=== PATIENT | female | born 1990 | race Caucasian/White ===

== ENCOUNTER 2024-12-21 09:17 | Outpatient (CLI) | payer OTHER, SELFPAY ==
--- OUTSIDE RECORDS SUMMARY | 2024-12-21 10:20 | XMS_ITS | Clinical Summary ---
Author Organization [facility] Address [address] [place] [id number] Care Team Providers Care [employer] Supervisor Name Role Phone SheetsYehudaInocenciabella Yepez NP Primary Care Provider Allergies Active Allergy Reactions Criticality Noted Date Comments Amoxicillin Penicillins Sulfa (Sulfonamide Antibiotics) Medications loratadine (CLARITIN) 10 mg tablet Take 1 tablet (10 mg total) by mouth daily Active Slynd tablet tablet Take 1 each (4 mg total) by mouth daily 08/09/2023 Active Active Problems Problem Noted Date Diagnosed Date General medical exam 08/12/2023 Assessment & Plan (08/12/2023 11:55 AM PARTNER [facility]): Follow-up 1 year for annual physical. Continue eating healthy. Limit processed foods like white starches, fast food, sweets and soda. Increase your vegetable intake and limit red meat. Continue exercising and wearing your seatbelt at all times. No texting and driving. Continue to manage your stress in a healthy manner. History of gestational diabetes 08/12/2023 Overview (08/12/2023): Diabetic diet, check labs Mild episode of recurrent major depressive disor comfort 09/28/2020 Atypical squamous cells of u ndetermined significance on cytologic smear of cervix (ASC-US) 06/02/2020 Overview (06/02/2020): 2017: ASCUS, - HR HPV 2018: neg/neg 2020: Generalized anxiety disorder 06/10/2018 Anxiety 03/07/2018 Other allergy status, other than to drugs and biological substances 03/19/2013 Dorsalgia 08/04/2012 Uncomplicated asthma 08/04/2012 Resolved Problems Problem Noted Date Diagnosed Date Resolved Date IUD (intrauterine device) in place 06/02/2020 01/10/2022 Overview (06/02/2020): Mirena placed 08/2017 White classification A1 gest ational diabetes mellitus 09/19/2015 08/12/2023 Immunizations Immunization Administration Dates Next Due Influenza, Quadrivalent, Spl it, Preservative Free, Intramuscular 08/01/2021,08/17/2020 Influenza, Unspecified 08/12/2023(Deferr ed: Patient decision),01/03/2023(Deferred: Patient Refused) MMR 11/16/2015 Varicella 09/28/2020(Deferred: History of disease) Medical History Medical History Date Comments Abnormal Pap smear of cervix Gestational diabetes Depression depression Gestational hypertension 2016 Gestational hypertension 2017 Asthma Family History Medical History Relation Name Comments No Known Problems Daughter Heart attack Father Diabetes Father's Brother Depression Maternal Grandmother Ovarian cancer Mother dx in 20s whi le , still living Depression Mother's Brother No Known Problems Son Relation Name Status Comments Daughter Alive Father Alive Father's Brother Maternal Grandmother Mother Alive Mother's Brother Son Alive Social History Tobacco Use Types Packs/Day Years Used Date Smoking Tobacco: Former Cigarettes Q uit: 12/06/2019 Smokeless Tobacco: Never Tobacco Cessation:Counseling Given: Not Answered Alcohol Use Standard Drinks/Week Comments Yes 5 (1 standard drink = 0.6 oz pur e alcohol) AUDIT-C Answer Date Recorded Q1: How often do you have a drink containing alc ohol? Never 06/02/2020 Average Number of Drinks Not on file 020 Frequency of Binge Drinking Not on file 05/08 PHQ-2 Answer Date Recorded PHQ-2 Total Score (If total score is 3 or more points, staff should administer the PHQ-9) 0 08/12/2023 Personal Safety Answer Date Recorded Getting School Help Needed Not on file 09/24 Comments No Sex and Gender Information Value Date Recorded Sex Assigned at Not on file Legal Sex Female 7:44 PM [facility]NER [facility] Gender Identity Female 09/06/2020 10:20 AM [facility] Sexual Orientation Straight 09/06/2020 10 :20 AM [facility] Obstetrics History Para Term AB IAB SAB Ectopic Multiple Livin g Live Births 2 2 2 2 2 Date Outcome GA Total Labor Labor/2nd/3rd Weight Sex Type Anes PTL Christy A1 A5 Name Clin Term Term Last Filed Vital Signs Vital Sign Reading Time Taken Comments Blood Pressure 104/66 08/12/2023 10:52 AM [facility] Pulse 89 08/12/2023 10:52 AM [facility] Temperature 36.7 C (98 F) 08/12/2023 10:52 AM [facility] Respiratory Rate 16 08/12/2023 10:52 AM [facility] Oxygen Saturation 100% 08/12/2023 10:52 AM [facility] Inhaled Oxygen Concentration - - Weight 67.6 kg (149 lb) 08/12/2023 10:52 AM [facility] Height 160 cm (5' 2.99 ) 08/12/2023 10:52 AM PARTNER [facility] Body Mass Index 26.4 08/12/2023 10:52 AM PARTNER [facility] Plan of Treatment Health Maintenance Due Date Last Done Comments DTaP/Tdap/Td Vaccine (1 - Tdap) 2001 Hepatitis B Screening 2008 Pneumococcal vaccine <65 (1 of 2 - PCV) 2009 Covid-19 Vaccine ( season) 2024 08/15/2021, 01/12/2021, 12/22/2020 Influenza Vaccine (#1) 2024 08/01/2021, 2019 Depression Screening 08/12/2024 08/12/2023, 12/12/2021, 08/01/2021, Additional history exists Regular Well Visit/Exam 18-64 08/12/2024 08/12/2023, 10/10/2021, 06/02/2020 Cervical Cancer Screening 10/10/20242021, 06/15/2020, 06/02/2020 Hepatitis C Screening Completed 12/21/2016 HPV Vaccines Aged Out No longer eligi ble based on patient's age to complete this topic Varicella Vaccines Discontinued Procedures Procedure Name Priority Date/Time Associated Diagnosis Comments THINPREP PAP WITH HPV Routine 10/10/2021 10:59 AM [facility] HEPATITIS C ANTIBODY Routine 12/21/2016 2:47 PM CDT from Last 3 Months or Most Recently Relevant to Health Maintenance Results * ThinPrep Pap with HPV (10/10/2021 10:59 AM [facility]) Pap test 10/10/2021 10:5 9 AM [facility] 10/11/2021 10:59 AM [facility] Narrative 10/16/2021 6:02 PM [facility] Department of Pathology [address] [place] [id number] Final Report with Addendum Note to Patients: This report may contain a detailed description of human tissue sent by a health care provider to the laboratory for pathologic evaluation. The content of this report is essential for diagnosis and may provide important critical findings. This information may be unfamiliar to patients to review without a medical professional present. It is advised that the patient review this report in the presence of a health care provider who can answer questions and explain the details. Patient Name: LILIANE NAVARRO Address: [address] [place] [address] Gender: F : 1990 (Age: 31) Service: Laboratory Location: N : [id number] [facility] #: [id number] Patient Type: [facility] SPECIMEN Taken: 10/10/2021 Received: 10/11/2021 Accessioned:: 10/12/2021 Reported: 10/16/2021 Physician(s): Rosi Baird M.D. [facility] Diagnosis: Source of Specimen: Imaged Thinprep Pap Test plus HPV - [employer] Developer Cytologic Material Specimen Adequacy: - Satisfactory for evaluation; endocervical/transformation zone component present General Category: - Negative for intraepithelial lesion or malignancy Interpretation/Results: - Inflammation and associated reactive cellular changes - Fungal organisms present, morphologically consistent with karina species FERDINAND Smallwood(ASCP) Pam Alvarado M.D. Report Electronically Reviewed and Signed Out By Pam Alvarado M.D. 10/16/2021 18:02:03 Addenda: HPV Test Interpretation NEGATIVE for types 16, 18, 31, 33, 35, 39, 45, 51, 52, 56, 58, 59, 66 and 68. Test performed utilizing Gen-Probe Aptima assay. FERDINAND Gibson(ASCP) Report Electronically Reviewed and Signed Out By FERDINAND Gibson(ASCP) 10/12/2021 13:00:44 Specimen(s) Received: A: Imaged Thinprep Pap Test plus HPV - [employer] Developer Cytologic Material Clinical History: Last Menstrual Period: 09/29/21 The Pap test is a screening test used to aid in the detection of cervical cancer and its precursors. It should not be the sole means by which malignant and premalignant lesions are diagnosed. Both false negative and false positive results may occur. It also has poor sensitivity for the detection of endometrial lesions and should not be used to evaluate suspected endometrial abnormalities. For these reasons it is most important to obtain Pap tests at regular intervals. The performance characteristics of some immunohistochemical stains, fluorescence in-situ hybridization tests and immunophenotyping by flow cytometry cited in this report (if any) were determined by the Surgical Pathology Department at [facility] as part of an ongoing automotive quality engineer program and in compliance with federally mandated regulations drawn from the Clinical Laboratory Improvement Act of 1988 (CLIA '88). Some of these tests rely on the use of analyte specific reagents and are subject to specific labeling requirements by the US Food and Drug Administration. Such diagnostic tests may only be performed in a facility that is certified by the Department of Health and Human Services as a high complexity laboratory under CLIA '88. The FDA has determined that such clearance or approval is not necessary. This test is used for clinical purposes. It should not be regarded as investigational or for research. Nevertheless, federal rules concerning the medical use of analyte specific reagents require that the following disclaimer be attached to the report: This test was developed and its performance characteristics determined by the Surgical Pathology Department [facility]. It has not been cleared or approved by the U. S. Food and Drug Administration. Rosi Baird MD LAB CYTOLOGY ORDERABLES Final Re sult * Hepatitis C antibody (12/21/2016 2:47 PM CDT) Hep C Ab NONREACT NONREACTIVE Comment: Siemens VisiQuateaurXP using MAURICE (chemiluminescent immunoassay) technology. NONREACTIVE: Antibodies to Hepatitis C not detected. This does not exclude early acute Hepatitis C infection, possibility of exposure to Hepatitis C, antibodies below detection limit, or to lack of antibody reactivity to the antigen used in this assay. EQUIVOCAL: Antibodies to Hepatitis C may or may not be present. Sample to be confirmed by real-time PCR method. REACTIVE: Antibodies to Hepatitis C detected. 12/21/2016 2:47 PM CDT 12/21/2016 4:38 PM CDT Marah Cali MD LAB MICROBIOLOGY - GENERAL O RDERABLES Final Result [facility] HISTORICAL RESULTS from Last 3 Months or Most Recently Relevant to Health Maintenance Insurance Care Teams [employer] Supervisor Relationship Specialty Start Date End Date Inocencia Sheets NP [address] [facility] [address] [place] [address] PCP - General Internal Medicine 08/17/20
--- OUTSIDE RECORDS SUMMARY | 2024-12-21 10:20 | XMS_ITS | Data Portability ---
Author Organization [facility] Address [address] [place] [address] Care Team Providers Care Vice President Diversity Name Role Phone CRISTIAN BRENNAN Primary Care Provider Assessment Encounter Date Assessment Date Assessment LastModified by Organization Details LastModified Time 11/27/2023 11/27/2023 Annual gynecological exam performed. Patient will come back in a year unless there are new symptoms. Take Calcium with Vitamin D 1200mg daily if not receiving in daily diet. It is strongly advised to have an annual flu shot and up can obtain at most pharmacies. If you have not had a TDap shot in the last 10 years you should obtain one as well. Discussed with patient & provided with information regarding Gardisil vaccine to prevent the 4 strains for HPV that cause cervical cancer if under age 26. Encourage safe sexual practices, to use condoms and limit partners if not already in a monogamous relationship. Do monthly self breast exams. Have mammogram yearly or every other year depending on family history. BRCA testing is now available for patients with strong genetic history of female cancer. If interested contact the office. Engage in daily exercise of low impact aerobic exercise 45-60 minutes 4-5 times weekly. Avoid tobacco and illicit drugs as well as using moderation with alcohol intake less than 1-2 8 oz beverages daily. This lifestyle behavior pattern will lead to less health conditions and longer life span. If BMI greater than 25 weight watchers or dietary consult advised. Patient received above instructions, and questions have been answered. If you have any questions please call or respond to this email. Patient was made aware of the patient portal and may obtain a paper copy of today's plan if desired. [email or web address] Not available 11/27/2023 11:34:10 Plan of Treatment Reminders Order Date Submit Date Provider Last Modified By Organization Details Last Modified Time Details Appointments Robotic TLH 2024 12:00P Candy SINCLAIR MD Not available Not available Not available SURG POST OP 2024 08:45A Candy SINCLAIR MD Not available Not available Not available Lab CBC 2024 025 [facility] (Lab), [address] [facility], [place], [address], 12/16/2024 04:07:56 Referral [email or web address] logist referral 2023 024 MARCO ANTONIO Bill MD, [address] [facility] [address], [place], [address], 10/04/2024 05:01:13 Procedures None recorded. Surgeries robotic assisted hysterect jessica with salpingec jason (SURG) 2024 025 [email or web address] [facility], [address] [facility] [address], [place], [address], 12/10/2024 13:43:36 Imaging US, pelvis [address], [facility] [address], [place], [address], 02/04/2024 22:31:29 US, transvagi nal [email or web address], [address], [address], [place], [address], 02/04/2024 22:31:29 Medication Orders Chelsey 0.35 mg tablet 2023 024 [email or web address] [facility], [address] [place] [address] [address], [place], [address], 03/30/2024 09:36:26 Patient TargetsNo targets recorded. Patient InstructionsNo instructions recorded. Reason for Referral Urogynecologist Referral for Female stress incontinence stress incontinence, planning hysterectomy in the fall Referring Physician: Farhad Sagastume, STATISTICAL MACHINE SERVICER, Encounter Date: 03/30/2024 Results Created Date Observation Date Name Description Value Unit Range Abnormal Flag Note LastModifiedBy Organization Detail LastModifiedTime 11/27/19 24 11/27/2023 IMAGE GUIDE D PAP AND HPV REGAR DLESS image guided Pap, HPV regardless of Pap result SEE RESULT S BELOW CASE REPOR T: Cytol ogy Gynec ologi jabier Repor t Case: [id number] [address] [place] Provi comfort: Kendal Malone NP Colle cted: 11/27 1308 Order ing Locat ion: [place] Path[facility] Recei andre: 11/28 0113 First Harsh n: Cyndi George Speci men: Harsh escalante Pap - Image d, Cervi x STATE MENT OF ADEQU ACY: Satis facto ry for evalu ation Trans forma tion zone compo nent prese nt FINAL DIAGN OSIS: Negat alejandro for Intra epith elial Mauro alcantar or Nata higginbotham (NIL) . Elect fuentes adams heron d by Cyndi George ica on 2023 at 2:12 PM ----- ----- ----- ----- ----- ----- ----- ----- ----- ----- ----- ----- ----- ----- ----- ----- ----- ---- HPV RESUL TS: HPV mRNA E6/E7 : No HPV mRNA Detec diana NOTE: This high risk HPV mRNA assay detec ts fourt een high- risk HPV types (16, 18, 31, 33, 35, 39, 45, 51, 52, 56, 58, 59, 66, 68) witho ut diffe renti ation . COMME NT: This speci men was revie wed by a Cytot echno logis t and/o r Patho logis t (as indic ated in this repor t) after evalu ation using the Thinp rep Imagi ng Syste m. CLINI JABIER INFOR MATIO N: Menst rual Statu s: LMP (if appli cable ): Clini jabier Histo ry/Pr eviou s Pap: Type of Neopl shirin (if appli cable ): Signi fican t Clini jabier Findi ngs: Other Histo ry: Hormo demetrice (if appli cable ): PAP EDUCA FLOYD L NOTE: The Pap Test is a scree boris test with an inher ent false negat alejandro rate. Liqui d-bas ed sampl ing may decre ase, but will not elimi danilo, false negat alejandro resul ts. A negat alejandro resul t does not precl ude the prese nce and/o r devel opmen t of disea se, since the prese nce of abnor mal cells in the sampl e depen ds on the locat ion of the lesio n and sampl ing techn ique. Maxim nued regul ar scree boris is the best metho d of cance r preve ntion . If repor diana cytol ogic findi ng do not corre late with physi jabier and/o r histo rical findi ngs, furth er inves tigat ion is recom richardson d, as clini josé warra nted. Not Available [facility] (Lab) [address] [facility], [place], [address], 12/02/2023 15:16:32 02/04/20 24 02/04/2024 US, abelvi s No observ ation record ed. [email or web address] [facility] [address], [place], [address], 02/04/2024 13:09:05 02/04/20 24 02/04/2024 US, moises becerril al No observ ation record ed. [email or web address] [place] [address], [place], [address], 02/04/2024 13:08:56 02/04/20 24 02/04/2024 US, pelvi s No observ ation record ed. [address] [facility], [place], [address], 02/06/2024 10:56:17 Result Notes None recorded. Procedures Surgical History Date Name Laterality Status Provider Name and Address Organization Details Recorded Time 4 Date of Last Pap Smear completed Becca Gardner [facility] 11/27/2023 11:05:16 3 IUD Removal completed Kendal Cabrera CNM [address], [place], [address], [facility] 12/14/2022 11:07:34 Imaging Results Imaging Date Name Status LastModified by Organization Details LastModified Time 02/04/2024 US, pelvis completed [email or web address] [place] [address], [place], [address], 02/04/2024 13:09:05 02/04/2024 [facility]aginal [email or web address] [address], [place], [address], 02/04/2024 13:08:56 02/04/2024 US, pelvis completed [email or web address] [address], [place], [address], 02/06/2024 10:56:17 Procedure Notes None recorded. Medical Equipment None Reported. Allergies Allergen ID Allergen Name Allergen Category Reaction Reaction Severity Criticality Documentation Date Start Date Code Code System Note Provider Name and Address Organization Details Recorded Time amoxicill in medicatio n rash severe Not available 09/07/2022 723 RxNorm Becca medel, [facility] 2 10:02:21 87227 penicilli n V potassium medicatio n rash severe Not available 09/07/202219395 5 RxNorm Becca medel, [facility] 2 10:02:21 37960 Substance with sulfonami de structure and antibacte rial mechanism of action (substanc e) medicatio n rash severe Not available 09/07/2022 54263 8003 SNOMED Becca Gardner [facility] 10:02:21 Medications Name Sig Start Date Stop Date Status Note LastModified by Organization Details LastModified Time oxybutynin chloride ER 10 mg tablet,exte nded release 24 hr TAKE ONE TABLET BY MOUTH DAILY 12/09 completed Not Available Not Available Not Available azithromyci n 250 mg tablet TAKE 2 TABLETS BY MOUTH ON DAY 1, THEN TAKE 1 TABLET DAILY ON DAYS 2-5 11/27 completed Not Available Not Available Not Available fluconazole 150 mg tablet TAKE ONE TABLET BY MOUTH EVERY OTHER DAY FOR THREE doses AND start taking A probiotic 11/27 completed Not Available Not Available Not Available sertraline 100 mg tablet TAKE ONE TABLET BY MOUTH DAILY 09/07 completed Not Available Not Available Not Available sumatriptan 50 mg tablet TAKE ONE TABLET BY MOUTH ONCE NEEDED FOR migraine. MAY REPEAT AFTER TWO hours 12/14 completed Not Available Not Available Not Available metronidazo le 500 mg tablet TAKE ONE TABLET BY MOUTH EVERY 12 hours FOR SEVEN DAYS 11/27 completed Not Available Not Available Not Available nystatin-tr iamcinolone 100,000 unit/gram-0 .1 % topical ointment APPLY TO THE AFFECTED AREA(S) BY TOPICAL ROUTE 2 TIMES PER DAY 11/27 completed Not Available Not Available Not Available clindamycin 1 % topical gel apply A thin layer topically TO THE affected area(s) TWICE DAILY 12/09 completed Not Available Not Available Not Available nystatin-tr iamcinolone 100,000 unit/g-0.1 % topical cream APPLY TO THE AFFECTED AREA(S) with A thin layer TWICE DAILY 11/27 completed Not Available Not Available Not Available norethindro ne acetate 5 mg tablet Take 1 tablet every day by oral route. 12/09 completed Not Available Not Available Not Available methylpredn isolone 4 mg tablets in a dose pack TAKE ONE TABLET BY MOUTH TWICE DAILY UNTIL ALL TAKEN 11/27 completed Not Available Not Available Not Available intrauterin e device (IUD) 03/10 /2023 completed Not Available Not Available Not Available spironolact one 50 mg tablet TAKE ONE TABLET BY MOUTH EVERY DAY 11/27 completed Not Available Not Available Not Available ibuprofen active Not Available Not Arabella ilable Not Available Probiotic active Not Available Not Arabella ilable Not Available Mariaelena 0.35 mg tablet take one tablet BY MOUTH daily 03/30 completed Not Available Not Available Not Available Onexton 1.2 % (1 % base)-3.75 % topical gel with pump APPLY A PEA-SIZED AMOUNT BY TOPICAL ROUTE ONCE DAILY TO COVER AREAS OF FACE WITH THIN LAYER 12/09 completed Not Available Not Available Not Available Slynd 4 mg (28) tablet Take 1 tablet every day by oral route. 03/30 completed Not Available Not Available Not Available Natalia Fe 10/26 (28) 1 mg-20 mcg (21)/75 mg (7) tablet TAKE ONE TABLET BY MOUTH DAILY 09/07 completed Not Available Not Available Not Available Vitals Date Recorded Body height Body mass index (BMI) Body weight Systolic blood pressure Diastolic blood pressure Provider Name and Address Organization Details Last Updated DateTime 11/27/2023 162.56 cm 25.4 kg/m2 10590.67 g 133 mm[Hg] 84 mm[Hg] Becca Gardner [facility] 4 11:04:50 Date Recorded Body height Body mass index (BMI) Body weight Systolic blood pressure Diastolic blood pressure Provider Name and Address Organization Details Last Updated DateTime 01/10/2024 162.56 cm 25 kg/m2 07595.05 g 122 mm[Hg] 77 mm[Hg] Teresa Bryant [facility] 4 12:35:05 Date Recorded Body height Body mass index (BMI) Body weight Systolic blood pressure Diastolic blood pressure Provider Name and Address Organization Details Last Updated DateTime 03/30/2024 162.56 cm 25.5 kg/m2 42840.11 g 111 mm[Hg] 76 mm[Hg] Guerline Lockwood [facility] 4 09:36:12 Date Recorded Body height Body mass index (BMI) Body weight Systolic blood pressure Diastolic blood pressure Provider Name and Address Organization Details Last Updated DateTime 12/09/2024 162.56 cm 26.2 kg/m2 00624.2 g 125 mm[Hg] 80 mm[Hg] Abimbola Andrea [facility] 17:38:47 Social History Question Answer Notes LastModified by Organizat ion Details LastModified Time Tobacco Smoking Status Former Smoker Becca medel, [facility] 09/07/2022 10:06:05 Do You Have An Advance Directive? No [email or web address] Information not available 09/07/2022 What Is Your Level Of Alcohol Consumption? Occasional [email or web address] Information not available 09/07/2022 How Many Years Have You Consumed Alcohol? 11 [email or web address] Information not available 01/10/2024 Are You Blind Or Do You Have Difficulty Seeing? No Information not available 09/07/2022 What Is Your Level Of Caffeine Consumption? Moderate [email or web address] Information not available 09/07/2022 How Much Tobacco Do You Chew? None [email or web address] Information not available 12/09/2024 In The 14 Days Before Symptom Onset, Have You Had Close Contact With A Laboratory-confir med COVID-19 While That Case Was Ill? No [email or web address] Information not available 09/07/2022 In The 14 Days Before Symptom Onset, Have You Had Close Contact With A Person Who Is Under Investigation For COVID-19 While That Person Was Ill? No Information not available 09/07/2022 Have You Been To An Area Known To Be High Risk For COVID-19? No [email or web address] Information not available 09/07/2022 Are You Deaf Or Do You Have Serious Difficulty Hearing? No [email or web address] Information not available 09/07/2022 What Type Of Diet Are You Following? REGULAR [email or web address] Information not available 09/07/2022 What Is The Highest Grade Or Level Of School You Have Completed Or The Highest Degree You Have Received? 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 Yes [email or web address] Information not available 09/07/2022 Have You Ever Been Counseled For Unhealthy Alcohol Use? No [email or web address] Information not available 09/07/2022 Do You Use Protection During Sex? No [email or web address] Information not available 09/07/2022 Do You Use Your Seat Belt Or Car Seat Routinely? Yes [email or web address] Information not available 09/07/2022 Do You Have Smoke And Carbon Monoxide Detectors In Your Home? Yes [email or web address] Information not available 09/07/2022 How Much Tobacco Do You Smoke? No Information not available 12/09/2024 Do You Feel Stressed (tense, Restless, Nervous, Or Anxious, Or Unable To Sleep At Night)? [id number] [email or web address] Information not available 09/07/2022 Do You Use Any Illicit Or Recreational Drugs? No [email or web address] Information not available 09/07/2022 Do You Use Sunscreen Routinely? Yes [email or web address] Information not available 09/07/2022 Has Tobacco Cessation Counseling Been Provided? No [email or web address] Information not available 09/07/2022 Have You Used IV Drugs? No Information not available 09/07/2022 Do You Or Have You Ever Used Any Other Forms Of Tobacco Or Nicotine? No [email or web address] Information not available 09/07/2022 Sex: Unknown Functional Status Question Answer Note LastModified by Organizat ion Details LastModified Time Do you have difficulty walking or climbing stairs? No [email or web address] Information not available 09/07/2022 Are you able to walk? YESWOREST [email or web address] Information not available 09/07/2022 Are you able to care for yourself? Yes [email or web address] Information not available 09/07/2022 Do you have difficulty dressing or bathing? No [email or web address] Information not available 09/07/2022 What is your exercise level? Heavy [email or web address] Information not available 09/07/2022 Mental Status None recorded. Family History Relationship Description Onset Age of this Age Resolved Age Notes LastModified by Organization Details LastModified Time Father Heart disease [email or web address] Not available 09/07 10:02:21 Father Myocardial infarction [email or web address] Not available 11/2021 10:05:12 Father Open heart surgery [email or web address] Not available 02/2025 16:53:01 Maternal Grandfather Hypertensive disorder [email or web address] Not available 09/07 10:02:21 Mother Malignant tumor of ovary [email or web address] Not available 04/16 11:07:37 Mother Autoimmune disease [email or web address] Not available 2024 17:39:25 Medical History Condition Response Allergies (Food, seasonal, environmental ) Y Other N Breast Cancer N Drug/Latex Allergies/Reactions Y Blood Transfusion N Dermatologic Disorders N Lung Disease N Defects or Inherited Disease N Breast Problem N Gestational Diabetes Y Hematologic disorders N Anesthesia Complications N History of STI N Deep Vein Thrombosis N Polycystic ovary syndrome N Anxiety Disorder N Autoimmune disease N Arthritis N Infertility N Polyps N Acid Reflux (GERD) N History of abnormal pap N Cancer N Stroke N Varicosities N Neurologic/Epilepsy N Endometriosis N High Cholesterol N Headaches Y Fibromyalgia N Kidney Disease N Heart Problems N Kidney or Bladder Problems N Thyroid Problems N GI Problems N Eating Disorder N Anemia N Art (IVF or FET) N Psychiatric Illness N Ovarian Cancer N Diabetes Y Pulmonary (TB, Asthma) N Hepatitis/Liver Disease N No Past Medical History N Eczema N Urinary Tract Infection N Abuse/Domestic Violence N Asthma N Trauma/Violence N Depression/ depression N Heart Disease N Pre-Eclampsia Y Hypertension N Osteoporosis N Thrombophilias N Gynecological History Statement/Question Response Abnormal Pap N Date of Last Mammogram Flow Heavy Date of LMP 12/09/2024 On BCP's at Conception? N N Was last menstrual period normal N STIs/STDs N HPV Vaccine N Current Control Method Condoms Age at First Child 25 Sexually Active? Y Menses Monthly Y Date of DEXA bone scan Age of first menstrual cycle 13 Date of Last Pap Smear 11/27/2023 Sexual Problems? N Desired Control Method Hysterectom y LMP Approximate N Obstetrics History GPAL:G 2 P 2 0 0 2 Type Value Full Term 2 Living 2 Total 2 Past Encounters Encounter ID Performer Location Encounter Start Date Encounter Closed Date Diagnosis/Indication Diagnosis SNOMED-CT Code Diagnosis ICD10 Code Diagnosis Note [id number] Kendal Cabrera CNM [facility] [address] [address] 09/07/2022 09:33:56 09/07/2022 11:02:04 Irregular periods 59857305 N92.6 Acne 59788952 L70.9 [id number] Tiarra Blanco [place] [address],[place] [address] 10/11/2022 09:23:10 10/11/2022 10:47:09 Irregular periods 31800533 N92.6 [id number] [facility] [address],[place] [address] 12/14/2022 10:20:51 12/14/2022 11:18:48 Acne 54918762 L70.9 Vaginitis 32384025 N76.0 extended panel sent IUD check 505079546 Z30. 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, reviewed se risks and benefits will email in 3 months for f/u [id number] [facility] [address],[place] [address] 11/27/2023 10:41:27 11/27/2023 11:49:21 Gynecologic examination 74063693 Z01.419 Irregular periods 935657 07 N92.6 try couple monthsdisc ussed less coverage for bcm, use back updiscusse d vasectomy/ ablationvs hysterecto my se risks and benefits, discussed possible embwill f/u if pills do not work [id number] FARHAD SAGASTUME MD [place] [address],[place] [address] 01/10/2024 11:58:40 01/15/2024 03:47:22 Abnormal uterine bleeding 0992806573 9100 N93.9 - patient reports heavy periods since delivery of last child- reports previously controlled with OCPs, however unable to take estrogen now due to migraines- has tried POPs x2 and IUD x2 as well with worsening bleeding- discussed discontinu ation of all hormonal control methods to monitor response vs trial of lo lo estrin again (patient denies aura with migraines) vs surgical management with hysterecto my- recommend pelvic US to evaluate for structural issues causing AUB- will discuss further treatment options following US [id number] Frances Gagnon [place] [address],[facility] [address] 02/04/2024 10:12:32 02/04/2024 10:56:06 Menorrhagia 451180405 N92.0 N94.6 [id number] FARHAD SAGASTUME MD [place] [address] [address] 03/30/2024 09:26:20 03/31/2024 11:00:28 Menorrhagia 803890620 N92.0 Abnormal u terine bleeding 7557836677 9100 N93.9 - patient reports heavy periods since delivery of last child- reports previously controlled with OCPs, however unable to take estrogen now due to migraines- has tried POPs x2 and IUD x2 as well with worsening bleeding- no improvemen t off of hormonal methods- discussed expectant management vs trial of lo lo estrin again (patient declines estrogen containing methods due to intense migraines) vs depo or Nexplanon vs surgical management with endometria l ablation vs hysterecto my- Pelvic US wnl, no evidence of structural cause of AUB- patient desires definitive surgical management with hysterecto my Female str ess incontinence 06383723 N39.3 - patient reports worsening stress incontinen ce since vaginal deliveries - will send referral to urology for possible combo case [id number] [place] [address] [address] 12/09/2024 16:52:07 12/10/2024 05:43:24 Anemia 803180370 D64.9 Menorrhagia 237181702 N9 2.0 N94.6 this patient is a 34-year-ol d female with severe menorrhagi a. We have agreed to perform robotic assisted hysterecto my with bilateral salpingect jessica. We talked about oophorecto my. She has a family history of ovarian cancer. She would like to keep her ovaries. We discussed the risks, benefits, and alternativ es to ovarian preservati on or removal. She understand s risks, benefits, and alternativ es to the surgery. She is going to have a suburethra l sling placed by Dr. Bill under the same anesthesia . I spent over 20 minutes on the patient's care in total. Health Concerns Section Related Observation LastModified by Organization Detai ls LastModified Time None Recorded Concern Status LastModified by Organization Details LastModified Time None Recorded Advance Directives Directive N: Payers Encounter Date Sequence Insurance Name Policy Number Policy Manrique Covered Member ID Manrique Member ID Guarantor Name 11/27/2023 1 [employer] [id number] Liliane Kurt [place] [id number] Liliane [place] 01/10/2024 1 [employer] [id number] Liliane E Ludgate [id number] Liliane [place] 02/04/2024 1 [employer] [id number] Liliane E [place] [id number] 1 Liliane [place] 03/30/2024 1 [employer] [id number] Liliane E [place] [id number] 1 Liliane [place] 12/09/2024 1 [employer] [id number] Liliane E [place] [id number] 1 Liliane Ludgate Notes Date Note Type Note Provider Name and Address Organization Details Recorded Time 11/27/2023 text/html Annual GYNReport ed bypatient.History: irregular cycles on slynd, frustrated can't use estrogen do to hx migraine Menstrual cycle:Normal menses Urinary symptoms:No hematuria; No incontinence Vulva:No genital lesion Vagina:Normal vaginal discharge Breast:No breast pain; No breast lump; No nipple discharge Sexual complaints:No sexual complaints; No pain during intercourse; Normal libido Menopausal Symptoms:No menopausal symptoms; Normal vaginal lubrication Psychological symptoms:No depression; No anxiety; No PMDD Preventive measures:Encourage self breast examination; Encourage regular exercise; Encourage no tobacco useNotes:discuss options for bleeding Kendal Cabrera CNM [address], [place], [address], [facility] 11/27/2023 11:39:43 01/10/2024 text/html Presents to discuss heavy periods. Was previously on Slynd with heavy periods 2x per month, tried fro 1 year with worsening bleeding. Tried Mariaelena 0.35mg x1 month, now in 2nd month with heavy bleeding and cramping. Had blood running down leg on Saturday. Now not bleeding today. Was previously on lo loestrin 7 years ago. Had Mirena IUD after delivery of son, had heavy bleeding x3 years. Then tried alternate OCP, but had migraine that lasted two weeks and stopped after she stopped the OCP. Then had IUD in again with heavy bleeding and acne. IUD removed 1 year ago. She has completed childbearing. Family hx of ovarian cancer. FARHAD SAGASTUME MD [address], [place], [address], [facility] [facility] 01/15/2024 00:03:45 03/30/2024 text/html Patient presents for ultrasound follow up for menorrhagia. She has previously tried OCPS, however she developed severe migraines with estrogen containing methods. She also tried POPs x2 and IUD x2 with no improvement in her bleeding. Since January, she has been off of control. She reports two periods in February, and currently having heavy period since yesterday. Having some cramping, though able to do her normal activities. She is also concerned due to stress incontinence since her vaginal deliveries. She has tried at home exercises without improvement. FARHAD SAGASTUME MD [address], [place], [address], [facility] 03/30/2024 23:10:50 12/09/2024 text/html this patient is a 34 year old female with severe menorrhagia. She has longstanding very heavy bleeding. Her menses are regular. However, they require double protection. Patient has accidents, getting blood on her bedding and clothing. Is affected work. She changes a pad or tampon every hour. She leaks blood around the pad and tampon. This bleeding has a profound impact on her quality of life and her activities of daily living. We discussed treatment options. Patient has already made the decision to have hysterectomy. It has been authorized and scheduled. The patient understands the procedure. The procedure was described to the patient in great detail. the patient also understands the risks. The risks were also explained in detail. She understands that injuries May occur during surgery. She understands these injuries can result in hospitalization, more surgery, and severe illness. She understands there is risk of hemorrhage and infection. Redd Sinclair MD [address], [place], [address], [facility] 12/09/2024 22:07:12 OBGyn Episode Ob Episode Information Episode Created Date Number of Fetuses Patient Bloodtype Patient rh Status Prepregnancy Weight lbs Domestic Partner Domestic Partner Phone Father Name Medical Instructor Status 09/06/20 22 1 CLOSED Fetus Data First Name Last Name Admitted to NICU Weight (g) Sex Living Outcome Pediatric Complications Fetus ID Race Codes Race Delivery Type M Full Term [id number] Vaginal Delivery Logan Calculation Initial Logan Date Initial Exam Date Initial Exam Provider Initial Ultrasound Date Last Menstrual Period Date Ultra Sound Weeks Gestation 0 Eighteen To Twenty Week Logan Update Ultra Sound Date Fundal Height At Umbil Quickening Date Ultra Sound Latest Weeks Gestation Final Logan Confirmed By Final Logan Confirmed Date Final Logan Date Ultra Sound Latest Days Gestation 0 0 Menstrual History Last Menstrual Date Menses Monthly On Bcp Conception Prior Menses Frequency Hcg Plus Date Menarche Onset Age Delivery Information Delivery Date Delivery Type Labor Anesthesia Weeks Gestation Incision Type Labor Labor Length Hrs Delivered By Post Complications Tubal Sterilization Discharge Date Comments 7 38 GDM/ Preeclamp nargis Discharge Information Feeding Method Contraceptive Method Maternal HG B and HCT Levels Ob Episode Information Episode Created Date Number of Fetuses Patient Bloodtype Patient rh Status Prepregnancy Weight lbs Domestic Partner Domestic Partner Phone Father Name Medical Instructor Status 09/06/20 22 1 CLOSED Fetus Data First Name Last Name Admitted to NICU Weight (g) Sex Living Outcome Pediatric Complications Fetus ID Race Codes Race Delivery Type F Full Term [id number] Vaginal Delivery Logan Calculation Initial Logan Date Initial Exam Date Initial Exam Provider Initial Ultrasound Date Last Menstrual Period Date Ultra Sound Weeks Gestation 0 Eighteen To Twenty Week Logan Update Ultra Sound Date Fundal Height At Umbil Quickening Date Ultra Sound Latest Weeks Gestation Final Logan Confirmed By Final Logan Confirmed Date Final Logan Date Ultra Sound Latest Days Gestation 0 0 Menstrual History Last Menstrual Date Menses Monthly On Bcp Conception Prior Menses Frequency Hcg Plus Date Menarche Onset Age Delivery Information Delivery Date Delivery Type Labor Anesthesia Weeks Gestation Incision Type Labor Labor Length Hrs Delivered By Post Complications Tubal Sterilization Discharge Date Comments 6 36 GDM/ pre-eclam psia Discharge Information Feeding Method Contraceptive Method Maternal HG B and HCT Levels
--- OUTSIDE RECORDS SUMMARY | 2024-12-21 10:20 | XMS_ITS | Encounter Summary ---
Author Organization [facility] Facility Care Team Providers Care Home Teaching Grades 9 Thru 12 Teacher Name Role Phone No, Physician Primary Care Provider [phone] Inocencia Sheets SPECIALTY FOOD PRODUCTS SUPERVISOR Primary Care Provider Encounter Details Date Type Department Care Team (Latest Contact Info) Description 09/25/2017 Orders Only [facility] CLIN[facility] ProviderBrandon MD [address] [place] [address] Social History Tobacco Use Types Packs/Day Years Used Date Smoking Tobacco: Never Assessed Comments Unknown Sex and Gender Information Value Date Recorded Sex Assigned at Not on file Legal Sex Female 7:44 PM JEWEL FLAT SURFACER Gender Identity Female 09/06/2020 10:20 AM JEWEL FLAT SURFACER Sexual Orientation Straight 09/06/2020 10 :20 AM JEWEL FLAT SURFACER documented as of this encounter Plan of Treatment Not on file documented as of this encounter Procedures Procedure Name Priority Date/Time Associated Diagnosis Comments SCAN - PATHOLOGY 10/09/2017 12:0 0 AM JEWEL FLAT SURFACER documented in this encounter Results * SCAN - PATHOLOGY (10/09/2017 12:00 AM JEWEL FLAT SURFACER) Narrative 10/09/2017 12:00 AM JEWEL FLAT SURFACER Ordered by an unspecified provider. Historical Provider Final Res ult documented in this encounter Visit Diagnoses Not on filedocumented in this encounter Care Teams Home Teaching Grades 9 Thru 12 Teacher Relationship Specialty Start Date End Date No, Physician PCP - General 05/05/20 08/16/20 Inocencia Sheets, SPECIALTY FOOD PRODUCTS SUPERVISOR [address] [address] PCP - General Internal Medicine 08/17/20 documented as of this encounter
--- OUTSIDE RECORDS SUMMARY | 2024-12-21 10:20 | XMS_ITS | Encounter Summary ---
Author Organization [facility] Facility Care Team Providers Care Sharebroker Name Role Phone No, Physician Primary Care Provider [phone] Inocencia Sheets PUPPET MAKER Primary Care Provider Encounter Details Date Type Department Care Team (Latest Contact Info) Description 04/24/2017 Orders Only [facility] CLINCONV ProviderBrandon MD [address] [place] [address] Social History Tobacco Use Types Packs/Day Years Used Date Smoking Tobacco: Never Assessed Comments Unknown Sex and Gender Information Value Date Recorded Sex Assigned at Not on file Legal Sex Female 7:44 PM RAILROAD CAR TRUCK BUILDER Gender Identity Female 09/06/2020 10:20 AM RAILROAD CAR TRUCK BUILDER Sexual Orientation Straight 09/06/2020 10 :20 AM RAILROAD CAR TRUCK BUILDER documented as of this encounter Plan of Treatment Not on file documented as of this encounter Procedures Procedure Name Priority Date/Time Associated Diagnosis Comments SCAN - LABS 04/23/2017 12:00 AM CDT documented in this encounter Results * SCAN - LABS (04/23/2017 12:00 AM CDT) Narrative 04/23/2017 12:00 AM CDT Ordered by an unspecified provider. Historical Provider Final Res ult documented in this encounter Visit Diagnoses Not on filedocumented in this encounter Care Teams Sharebroker Relationship Specialty Start Date End Date No, Physician PCP - General 05/05/20 08/16/20 Inocencia Sheets, ABA [address] [facility] [address] [place] [address] PCP - General Internal Medicine 08/17/20 documented as of this encounter
--- OUTSIDE RECORDS SUMMARY | 2024-12-21 10:20 | XMS_ITS | Encounter Summary ---
Author Organization [facility] Facility Care Team Providers Care Fuel Efficient Aircraft Designer Name Role Phone No, Physician Primary Care Provider [phone] Inocencia Sheets BUCKSHOT SWAGE OPERATOR Primary Care Provider Encounter Details Date Type Department Care Team (Latest Contact Info) Description 06/11/2017 Orders Only [facility] CLINCONV ProviderBrandon MD [address] [place] [address] Social History Tobacco Use Types Packs/Day Years Used Date Smoking Tobacco: Never Assessed Comments Unknown Sex and Gender Information Value Date Recorded Sex Assigned at Not on file Legal Sex Female 7:44 PM NIGHT BAKER Gender Identity Female 09/06/2020 10:20 AM NIGHT BAKER Sexual Orientation Straight 09/06/2020 10 :20 AM NIGHT BAKER documented as of this encounter Plan of Treatment Not on file documented as of this encounter Procedures Procedure Name Priority Date/Time Associated Diagnosis Comments SCAN - LABS 06/11/2017 12:00 AM CDT documented in this encounter Results * SCAN - LABS (06/11/2017 12:00 AM CDT) Narrative 06/11/2017 12:00 AM CDT Ordered by an unspecified provider. Historical Provider Final Res ult documented in this encounter Visit Diagnoses Not on filedocumented in this encounter Care Teams Fuel Efficient Aircraft Designer Relationship Specialty Start Date End Date No, Physician PCP - General 05/05/20 08/16/20 Inocencia Sheets, ABA [address] [facility] [address] [place] [address] PCP - General Internal Medicine 08/17/20 documented as of this encounter
--- OUTSIDE RECORDS SUMMARY | 2024-12-21 10:20 | XMS_ITS | Encounter Summary ---
Author Organization [facility] Facility Care Team Providers Care Ham Stripper Name Role Phone No, Physician Primary Care Provider [phone] Inocencia Sheets RESIDENT CARE TECHNICIAN Primary Care Provider Encounter Details Date Type Department Care Team (Latest Contact Info) Description 02/04/2017 Orders Only [facility] CLINCONV ProviderBrandon MD [address] [place] [address] Social History Tobacco Use Types Packs/Day Years Used Date Smoking Tobacco: Never Assessed Comments Unknown Sex and Gender Information Value Date Recorded Sex Assigned at Not on file Legal Sex Female 7:44 PM RETAIL WAREHOUSE ASSOCIATE Gender Identity Female 09/06/2020 10:20 AM RETAIL WAREHOUSE ASSOCIATE Sexual Orientation Straight 09/06/2020 10 :20 AM RETAIL WAREHOUSE ASSOCIATE documented as of this encounter Plan of Treatment Not on file documented as of this encounter Procedures Procedure Name Priority Date/Time Associated Diagnosis Comments SCAN - LABS 02/04/2017 12:00 AM CDT SCAN - LABS 02/04/2017 12:00 AM CDT documented in this encounter Results * SCAN - LABS (02/04/2017 12:00 AM CDT) Narrative 02/04/2017 12:00 AM CDT Ordered by an unspecified provider. Historical Provider Final Res ult * SCAN - LABS (02/04/2017 12:00 AM CDT) Narrative 02/04/2017 12:00 AM CDT Ordered by an unspecified provider. us Historical Provider Final Res ult documented in this encounter Visit Diagnoses Not on filedocumented in this encounter Care Teams Ham Stripper Relationship Specialty Start Date End Date No, Physician PCP - General 05/05/20 08/16/20 Inocencia Sheets NP [address] [id number] PCP - General Internal Medicine 08/17/20 documented as of this encounter
--- OUTSIDE RECORDS SUMMARY | 2024-12-21 10:20 | XMS_ITS | Encounter Summary ---
Author Organization [facility] Facility Care Team Providers Care Spread Cutter Name Role Phone No, Physician Primary Care Provider [phone] Inocencia Sheets SYSTEM ADMINISTRATOR Primary Care Provider Encounter Details Date Type Department Care Team (Latest Contact Info) Description 11/14/2015 Orders Only [facility] CLINCONV ProviderBrandon MD [address] [place] [address] Social History Tobacco Use Types Packs/Day Years Used Date Smoking Tobacco: Never Assessed Comments Unknown Sex and Gender Information Value Date Recorded Sex Assigned at Not on file Legal Sex Female 7:44 PM RESEARCHER Gender Identity Female 09/06/2020 10:20 AM RESEARCHER Sexual Orientation Straight 09/06/2020 10 :20 AM RESEARCHER documented as of this encounter Plan of Treatment Not on file documented as of this encounter Procedures Procedure Name Priority Date/Time Associated Diagnosis Comments SCAN - PATHOLOGY 11/14/2015 12:0 0 AM RESEARCHER documented in this encounter Results * SCAN - PATHOLOGY (11/14/2015 12:00 AM RESEARCHER) Narrative 11/14/2015 12:00 AM RESEARCHER Ordered by an unspecified provider. Historical Provider Final Res ult documented in this encounter Visit Diagnoses Not on filedocumented in this encounter Care Teams Spread Cutter Relationship Specialty Start Date End Date No, Physician PCP - General 05/05/20 08/16/20 Inocencia Sheets, SYSTEM ADMINISTRATOR [address] [address] PCP - General Internal Medicine 08/17/20 documented as of this encounter
--- OUTSIDE RECORDS SUMMARY | 2024-12-21 10:20 | XMS_ITS | Encounter Summary ---
Author Organization [facility] Facility Care Team Providers Care Mobile Sales Expert Name Role Phone No, Physician Primary Care Provider [phone] Inocencia Sheets MEDICAL RECORD CODER Primary Care Provider Encounter Details Date Type Department Care Team (Latest Contact Info) Description 08/26/2017 Orders Only [facility] CLINCONV ProviderBrandon MD [address] [place] [address] Social History Tobacco Use Types Packs/Day Years Used Date Smoking Tobacco: Never Assessed Comments Unknown Sex and Gender Information Value Date Recorded Sex Assigned at Not on file Legal Sex Female 7:44 PM TEACHER AIDE CLERICAL Gender Identity Female 09/06/2020 10:20 AM TEACHER AIDE CLERICAL Sexual Orientation Straight 09/06/2020 10 :20 AM TEACHER AIDE CLERICAL documented as of this encounter Plan of Treatment Not on file documented as of this encounter Procedures Procedure Name Priority Date/Time Associated Diagnosis Comments SCAN - LABS 08/26/2017 12:00 AM TEACHER AIDE CLERICAL documented in this encounter Results * SCAN - LABS (08/26/2017 12:00 AM TEACHER AIDE CLERICAL) Narrative 08/26/2017 12:00 AM TEACHER AIDE CLERICAL Ordered by an unspecified provider. Historical Provider Final Res ult documented in this encounter Visit Diagnoses Not on filedocumented in this encounter Care Teams Mobile Sales Expert Relationship Specialty Start Date End Date No, Physician PCP - General 05/05/20 08/16/20 Inocencia Sheets NP [address] [address] PCP - General Internal Medicine 08/17/20 documented as of this encounter
--- OUTSIDE RECORDS SUMMARY | 2024-12-21 10:20 | XMS_ITS | Encounter Summary ---
Author Organization [facility] Facility Care Team Providers Care Mixing Engineer Name Role Phone No, Physician Primary Care Provider [phone] Inocencia Sheets AUTOMOTIVE PARTS COUNTER ASSOCIATE Primary Care Provider Encounter Details Date Type Department Care Team (Latest Contact Info) Description 07/09/2017 Orders Only [facility] CLINCONV ProviderBrandon MD [address] [place] [address] Social History Tobacco Use Types Packs/Day Years Used Date Smoking Tobacco: Never Assessed Comments Unknown Sex and Gender Information Value Date Recorded Sex Assigned at Not on file Legal Sex Female 7:44 PM GAME FARM HELPER Gender Identity Female 09/06/2020 10:20 AM GAME FARM HELPER Sexual Orientation Straight 09/06/2020 10 :20 AM GAME FARM HELPER documented as of this encounter Plan of Treatment Not on file documented as of this encounter Procedures Procedure Name Priority Date/Time Associated Diagnosis Comments SCAN - LABS 07/15/2017 12:00 AM CDT SCAN - LABS 07/09/2017 12:00 AM CDT documented in this encounter Results * SCAN - LABS (07/15/2017 12:00 AM CDT) Narrative 07/15/2017 12:00 AM CDT Ordered by an unspecified provider. Historical Provider Final Res ult * SCAN - LABS (07/09/2017 12:00 AM CDT) Narrative 07/09/2017 12:00 AM CDT Ordered by an unspecified provider. us Historical Provider Final Res ult documented in this encounter Visit Diagnoses Not on filedocumented in this encounter Care Teams Mixing Engineer Relationship Specialty Start Date End Date No, Physician PCP - General 05/05/20 08/16/20 Inocencia Sheets NP [address] [id number] PCP - General Internal Medicine 08/17/20 documented as of this encounter
--- OUTSIDE RECORDS SUMMARY | 2024-12-21 10:20 | XMS_ITS | Referral Summary ---
Author Organization [facility] Address [address] [place] [id number] Care Team Providers Care Health Informatics Specialist Name Role Phone SudeepYehudaInocencaibella Yepez NP Primary Care Provider Allergies Active [...] 08/12/2023 Assessment & Plan (08/12/2023 11:55 AM WELL DRILL OPERATOR HELPER CABLE TOOL): Follow-up 1 year for annual physical. Continue [...] MMR 11/16/2015 Varicella 09/28/2020(Deferred: History of disease) Social History Tobacco Use Types Packs/Day Years [...] on file Legal Sex Female 7:44 PM WELL DRILL OPERATOR HELPER CABLE TOOL Gender Identity Female 09/06/2020 10:20 AM WELL DRILL OPERATOR HELPER CABLE TOOL Sexual Orientation Straight 09/06/2020 10 :20 AM WELL DRILL OPERATOR HELPER CABLE TOOL Last Filed Vital Signs Vital Sign Reading Time Taken Comments Blood Pressure 104/66 08/12/2023 10:52 AM WELL DRILL OPERATOR HELPER CABLE TOOL Pulse 89 08/12/2023 10:52 AM WELL DRILL OPERATOR HELPER CABLE TOOL Temperature 36.7 C (98 F) 08/12/2023 10:52 AM WELL DRILL OPERATOR HELPER CABLE TOOL Respiratory Rate 16 08/12/2023 10:52 AM WELL DRILL OPERATOR HELPER CABLE TOOL Oxygen Saturation 100% 08/12/2023 10:52 AM WELL DRILL OPERATOR HELPER CABLE TOOL Inhaled Oxygen Concentration - - Weight 67.6 kg (149 lb) 08/12/2023 10:52 AM WELL DRILL OPERATOR HELPER CABLE TOOL Height 160 cm (5' 2.99 ) 08/12/2023 10:52 AM WELL DRILL OPERATOR HELPER CABLE TOOL Body Mass Index 26.4 08/12/2023 10:52 AM WELL DRILL OPERATOR HELPER CABLE TOOL Plan of Treatment Not on file Procedures Procedure Name Priority Date/Time Associated Diagnosis Comments THINPREP PAP WITH HPV Routine 10/10/2021 10:59 AM WELL DRILL OPERATOR HELPER CABLE TOOL HEPATITIS C ANTIBODY Routine 12/21/2016 2:47 PM CDT from Last 3 Months or Most Recently Relevant to Health Maintenance Results * ThinPrep Pap with HPV (10/10/2021 10:59 AM WELL DRILL OPERATOR HELPER CABLE TOOL) Pap test 10/10/2021 10:5 9 AM WELL DRILL OPERATOR HELPER CABLE TOOL 10/11/2021 10:59 AM WELL DRILL OPERATOR HELPER CABLE TOOL Narrative 10/16/2021 6:02 PM WELL DRILL OPERATOR HELPER CABLE TOOL [facility] Department of Pathology [address] [place] [address] Final Report with Addendum Note to Patients: [...] questions and explain the details. Patient Name: VIVIANE NAVARRO Address: [address] [place] [address] Gender: F : 1990 (Age: 31) Service: Laboratory Location: N : [id number] [facility] #: [id number] Patient Type: [facility] SPECIMEN Taken: 10/10/2021 Received: 10/11/2021 Accessioned:: 10/12/2021 Reported: 10/16/2021 Physician(s): Rosi Baird M.D. [facility] Diagnosis: Source of Specimen: Imaged Thinprep Pap Test plus HPV - Office Clinician Cytologic Material Specimen Adequacy: - Satisfactory for [...] Test performed utilizing Gen-Probe Aptima assay. FERDINAND Gibson(ASC) Report Electronically Reviewed and Signed Out By FERDINAND Gibson(ASC) 10/12/2021 13:00:44 Specimen(s) Received: A: Imaged Thinprep Pap Test plus HPV - Office Clinician Cytologic Material Clinical History: Last Menstrual Period: [...] determined by the Surgical Pathology Department at [facility] as part of an ongoing senior software quality engineer program and in compliance with [...] characteristics determined by the Surgical Pathology Department [facility]. It has not been cleared or approved by the U. S. Food and Drug Administration. us Rosi Baird MD LAB CYTOLOGY ORDERABLES Final Re sult * Hepatitis C antibody (12/21/2016 2:47 PM CDT) Hep C Ab NONREACT NONREACTIVE 12/21/2016 6:16 PM CDT [facility] HISTORICAL RESULTS Comment: Siemens [employer]elsaurXP using MAURICE (chemiluminescent immunoassay) technology. NONREACTIVE: Antibodies [...] 2:47 PM CDT 12/21/2016 4:38 PM CDT us Marah Cali MD LAB MICROBIOLOGY - GENERAL O RDERABLES Final Result [facility] HISTORICAL RESULTS from Last 3 Months or Most Recently Relevant to Health Maintenance Insurance VIVIENNE Care Teams Health Informatics Specialist Relationship Specialty Start Date End Date Inocencia Sheets NP [facility] [place] [address] PCP - General Internal Medicine 08/17/20
== END 2024-12-21 09:18 | disposition home or self-care (01) ==
LOC: ANHSURGERY 09:24
PROVIDERS: Visit Provider Obstetrics & Gynecology
DX: Z01.818 Encounter for other preprocedural examination (principal); N92.0 Excessive and frequent menstruation with regular cycle
CPT/HCPCS: 36415; 86850; 86900; 86901

== ENCOUNTER 2024-12-28 01:01 | Day surgery (SDC) | payer OTHER, SELFPAY ==
[2024-12-17 09:25] VITALS: BMI 26.6
--- NOTE | 2024-12-17 09:33 | PC.NURSE ---
Report to the Outpatient Waiting Room, entrance under the green pavilion located off [facility], at time _1000_ on date _[id number]_. Planned Procedure Time: _1200_.? Time changes happen often and if your time is changed the preop area will call you the afternoon before. - You and your visitor will be asked to self-screen and do not enter if you have any COVID symptoms. Please call surgeon if you need to reschedule. - A mask is optional within the hospital at this time. Patients may have clear liquids (water, carbonated beverages, clear teas, apple juice) until 3 hours prior to surgery with a maximum of 20 ounces. - No food from midnight until time of surgery and no smoking, or chewing tobacco (or any form of nicotine). No chewing gum, candy or mints. Take only the following medications with a SIP of water on the morning of surgery: ___None DO NOT STOP ANY OF YOUR OTHER PRESCRIPTION MEDICATIONS PRIOR TO SURGERY EXCEPT THE FOLLOWING Hold all vitamins and supplements for 3 days per anesthesiologist. Medications to discontinue per physician Date to take last zzyi___[phone]____ Please no make-up, nail cape verdean, hairspray, perfume, deodorant, or body powder the day of surgery.? No jewelry (including any body piercings) or valuables the day of surgery, leave them at home.? Please take a shower or bath the night before, or the morning of, surgery with an antibacterial soap.? Wear comfortable, loose fitting clothing.? - Jewelry must be removed prior to entering the operating room.? Rings and piercings that are not removed may be cut off. - The hospital will not accept responsibility for valuables.? - Please leave all valuables, including medications, at home the day of surgery. If you are going home after surgery, a licensed trencher driver must drive you home.? - NO public transportation without another adult if you receive anesthesia. - We recommend that an adult stay with you for 24 hours following discharge. - We also recommend that you do not drive, make important decision, drink alcoholic beverages, or take any drugs that were not prescribed by your health care provider for at least 24 hours after your discharge time. Follow any additional instructions given to you from your surgeon. Telephone instructions given to __Liliane__and asked if any additional questions and then verbalized understanding. Patient advised to call surgeon office or pre surgery nurse liaison [phone] if any additional questions.
--- NOTE | 2024-12-26 15:03 | PM.IMHP ---
H&P: HPI History of Present Illness Date/Time: 12/26/24 15:03 Chief Complaint: miguel a Narrative: Note:?Liliane Navarro is a 34-year-old female who presents for a clinic visit due to urinary incontinence. She is seen at the request of her industrial gas production operator. ?She reports that she has had two children, and since then, she has experienced significant bladder issues. She is unable to get through an hour and a half car ride without needing to urinate and has to wear protection when she laughs, screams, yells, coughs, sneezes, jumps, or lifts. This problem has been ongoing for approximately seven years, coinciding with the age of her youngest child. She describes the urgency as severe, often feeling an immediate need to urinate, and when she does, it is a full void rather than a small amount. She also experiences stress incontinence with activities such as coughing, sneezing, and laughing. She has discussed her symptoms with her industrial gas production operator, Dr. Sagastume, who suggested that they could coordinate treatment with a hysterectomy she is considering for painful periods. Liliane is interested in exploring surgical options for her incontinence, specifically a mid-urethral sling procedure. A bladder scan was completed to evaluate for urinary retention as possible cause for voiding symptoms. Review of Systems Review of Systems: All systems reviewed & are unremarkable except as noted in HPI and below PMFSH Social History Social History Years smoked: 2 Smoking status: Former smoker Tobacco type: cigarettes Smoking end date: 12/18/19 Alcohol intake: current Living arrangements: with family Spiritual care concerns: No Meds Home Medications and Allergies Home Medications ?Medication ?Instructions ?Recorded ?Confirmed ?Type ibuprofen 200 mg tablet (Advil) 800 mg PO TID PRN pain 12/17/24 12/17/24 History lactobacillus combo no.11 15 1 cap PO DAILY 12/17/24 12/17/24 History billion cell sprinkle capsule (Probiotic) vitamin B complex 1 tablet PO DAILY 12/17/24 12/17/24 History vitamin D3 1,250 mcg (50,000 cap PO DAILY 12/17/24 History unit)-vitamin K2 200 mcg capsule (Decara K) Allergies Allergy/AdvReac Type Severity Reaction Status Date / Time amoxicillin Allergy Severe Hives Verified 12/17/24 09:22 Penicillins Allergy Severe Hives Verified 12/17/24 09:22 Sulfa (Sulfonamide Allergy Severe Hives Verified 12/17/24 09:22 Antibiotics) Exam Narrative: + urethral mobility Assessment and Plan Assessment and plan (1) MIGUEL A (stress urinary incontinence, female): Code(s): N39.3 - Stress incontinence (female) (male) Status: Acute Assessment and Plan: Stress incontinence, female (N39.3) Current Plans We discussed the treatment options for stress urinary incontinence including pelvic floor muscle rehabilitation, transurethral bulking agents, and mid-urethral sling procedures.? She is most interested in the latter.? We discusses the alternatives, benefits, and risks.? We discusses specifically the risks of bleeding, infection, failure to correct incontinence, damage to the urinary tract, vaginal mesh extrusion, urinary tract mesh erosion, obstructive voiding requiring a secondary procedure, de giovany or worsening irritative voiding symptoms, post-operative hip and leg pain, and the risk of anesthesia.? She was also counseled on post-operative activity restrictions.? She wishes to proceed. Understands treatment of her Stress Urinary Incontinence will not improve her overactive bladder symptoms. She may want to coordinate with her industrial gas production operator, Dr. Sagastume, if this is possible.?? they are planning a hysterectomy for dysfunctional uterine bleeding EXAMINATION OF PELVIS IN FEMALE (36032) Pt Education - Urethral Sling: discussed with patient and provided information. THE PATIENT WILL BE SCHEDULED FOR A URODYNAMIC STUDY FOR THE EVALUATION OF DETRUSOR/URETHRAL FUNCTION Perform Urodynamic study in the standing position if able Perform Urodynamic study without vaginal pack/pessary No follow up after urodynamics needed. Will call: discussed with patient and provided information. Pt Education - FollowMyHealth and [employer] API Instructions: discussed with patient and provided information. SIMPLE URINALYSIS (67583) BLADDER SCAN WITH ASSESSMENT OF POST-VOID RESIDUAL PER REGIME (74888) Overactive bladder (N32.81) Current Plans Started oxyBUTYnin chloride ER 10 mg tablet,extended release 24 hr, 1 (one) Tablet ER 24HR daily, #30, 07/20/2024, Ref. Q 30 Days x1 Year. I encouraged Kegel exercises and behavioral therapies.? Patient iformation was provided in written form. Pt Education - Kegel Exercises: urinary incontinence Note:?ASSESSMENT: - Stress urinary incontinence - Urgency urinary incontinence PLAN: - We discussed the treatment options for stress urinary incontinence, including pelvic floor muscle rehabilitation, transurethral bulking agents, and mid-urethral sling procedures. She is most interested in the latter. - We discussed the alternatives, benefits, and risks. We discussed specifically the risks of bleeding, infection, failure to correct incontinence, damage to the urinary tract, vaginal mesh extrusion, urinary tract mesh erosion, obstructive voiding requiring a secondary procedure, de giovany or worsening irritative voiding symptoms, post-operative hip and leg pain, and the risk of anesthesia. - We also discussed that treatment of stress incontinence is unlikely to improve overactive bladder symptoms if present. - She was also counseled on post-operative activity restrictions. - She wishes to proceed. -Understands it is stress incontinence treatment will not help her overactive bladder symptoms
[2024-12-28] VITALS (10 sets, daily range): BP systolic 95–139; BP diastolic 65–91; PULSE 59–103; RESP 12–20; TEMP 36.1–36.9; O2SAT 97–100
--- OUTSIDE RECORDS SUMMARY | 2024-12-28 01:03 | XMS_ITS | Referral Summary ---
Author Organization [facility] Address [address] [place] [id number] Care Team Providers Care Beauty Consultant Name Role Phone SudeepYehudaInocenciabella Yepez NP Primary Care Provider Allergies Active [...] 08/12/2023 Assessment & Plan (08/12/2023 11:55 AM PIT CLERK): Follow-up 1 year for annual physical. Continue [...] on file Legal Sex Female 7:44 PM PIT CLERK Gender Identity Female 09/06/2020 10:20 AM PIT CLERK Sexual Orientation Straight 09/06/2020 10 :20 AM PIT CLERK Last Filed Vital Signs Vital Sign Reading Time Taken Comments Blood Pressure 104/66 08/12/2023 10:52 AM PIT CLERK Pulse 89 08/12/2023 10:52 AM PIT CLERK Temperature 36.7 C (98 F) 08/12/2023 10:52 AM PIT CLERK Respiratory Rate 16 08/12/2023 10:52 AM PIT CLERK Oxygen Saturation 100% 08/12/2023 10:52 AM PIT CLERK Inhaled Oxygen Concentration - - Weight 67.6 kg (149 lb) 08/12/2023 10:52 AM PIT CLERK Height 160 cm (5' 2.99 ) 08/12/2023 10:52 AM PIT CLERK Body Mass Index 26.4 08/12/2023 10:52 AM PIT CLERK Plan of Treatment Not on file Procedures Procedure Name Priority Date/Time Associated Diagnosis Comments THINPREP PAP WITH HPV Routine 10/10/2021 10:59 AM PIT CLERK HEPATITIS C ANTIBODY Routine 12/21/2016 2:47 PM CDT from Last 3 Months or Most Recently Relevant to Health Maintenance Results * ThinPrep Pap with HPV (10/10/2021 10:59 AM PIT CLERK) Pap test 10/10/2021 10:5 9 AM PIT CLERK 10/11/2021 10:59 AM PIT CLERK Narrative 10/16/2021 6:02 PM PIT CLERK [facility] Department of Pathology [address] [place] [address] Final Report with Addendum Note to Patients: [...] the details. Patient Name: VIVIANE NAVARRO Address: [address] [place] [address] Gender: F : 1990 (Age: 31) Service: Laboratory Location: N : [id number] [facility] #: [id number] Patient Type: [facility] SPECIMEN Taken: 10/10/2021 Received: 10/11/2021 Accessioned:: 10/12/2021 Reported: 10/16/2021 Physician(s): Rosi Baird M.D. [facility] Diagnosis: Source of Specimen: Imaged Thinprep Pap Test plus HPV - Batch Still Operator Cytologic Material Specimen Adequacy: - Satisfactory for [...] Imaged Thinprep Pap Test plus HPV - Batch Still Operator Cytologic Material Clinical History: Last Menstrual Period: [...] determined by the Surgical Pathology Department at [facility] as part of an ongoing vendor quality supervisor program and in compliance with federally mandated [...] characteristics determined by the Surgical Pathology Department [facility]. It has not been cleared or approved by the U. S. Food and Drug Administration. us Rosi Baird MD LAB CYTOLOGY ORDERABLES Final Re sult * Hepatitis C antibody (12/21/2016 2:47 PM CDT) Hep C Ab NONREACT NONREACTIVE Comment: Siemens PumpicaurXP using MAURICE (chemiluminescent immunoassay) technology. NONREACTIVE: Antibodies [...] MICROBIOLOGY - GENERAL O RDERABLES Final Result [facility] HISTORICAL RESULTS from Last 3 Months or Most Recently Relevant to Health Maintenance Insurance VIVIENNE Care Teams Beauty Consultant Relationship Specialty Start Date End Date Inocencia Sheets NP [facility] [place] [address] PCP - General Internal Medicine 08/17/20
--- OUTSIDE RECORDS SUMMARY | 2024-12-28 01:03 | XMS_ITS | Encounter Summary ---
Author Organization [facility] Facility Care Team Providers Care Engraver Copperplate Name Role Phone No, Physician Primary Care Provider Inocencia Sheets MEDIA MARKETING COORDINATOR Primary Care Provider Encounter Details Date Type Department Care Team (Latest Contact Info) Description 08/26/2017 Orders Only [facility] CLINCON[facility] ProviderBrandon MD [address] [place] [id number] Social History Tobacco Use Types Packs/Day Years Used Date Smoking Tobacco: Never Assessed Comments Unknown Sex and Gender Information Value Date Recorded Sex Assigned at Not on file Legal Sex Female 7:44 PM PORT STEWARD Gender Identity Female 09/06/2020 10:20 AM PORT STEWARD Sexual Orientation Straight 09/06/2020 10 :20 AM PORT STEWARD documented as of this encounter Plan of Treatment Not on file documented as of this encounter Procedures Procedure Name Priority Date/Time Associated Diagnosis Comments SCAN - LABS 08/26/2017 12:00 AM PORT STEWARD documented in this encounter Results * SCAN - LABS (08/26/2017 12:00 AM PORT STEWARD) Narrative 08/26/2017 12:00 AM PORT STEWARD Ordered by an unspecified provider. Historical Provider Final Res ult documented in this encounter Visit Diagnoses Not on filedocumented in this encounter Care Teams Engraver Copperplate Relationship Specialty Start Date End Date No, Physician PCP - General 05/05/20 08/16/20 Inocencia Sheets NP [address] [address] PCP - General Internal Medicine 08/17/20 documented as of this encounter
--- OUTSIDE RECORDS SUMMARY | 2024-12-28 01:03 | XMS_ITS | Encounter Summary ---
Author Organization [facility] Facility Care Team Providers Care Manager Star Name Role Phone No, Physician Primary Care Provider [phone] Inocencia Sheets MIXING MACHINE OPERATOR Primary Care Provider Encounter Details Date Type Department Care Team (Latest Contact Info) Description 11/14/2015 Orders Only [facility] CLINCONV ProviderBrandon MD [address] [place] [id number] Social History Tobacco Use Types Packs/Day Years Used Date Smoking Tobacco: Never Assessed Comments Unknown Sex and Gender Information Value Date Recorded Sex Assigned at Not on file Legal Sex Female 7:44 PM LEAD PERSON Gender Identity Female 09/06/2020 10:20 AM LEAD PERSON Sexual Orientation Straight 09/06/2020 10 :20 AM LEAD PERSON documented as of this encounter Plan of Treatment Not on file documented as of this encounter Procedures Procedure Name Priority Date/Time Associated Diagnosis Comments SCAN - PATHOLOGY 11/14/2015 12:0 0 AM LEAD PERSON documented in this encounter Results * SCAN - PATHOLOGY (11/14/2015 12:00 AM LEAD PERSON) Narrative 11/14/2015 12:00 AM LEAD PERSON Ordered by an unspecified provider. Historical Provider Final Res ult documented in this encounter Visit Diagnoses Not on filedocumented in this encounter Care Teams Manager Star Relationship Specialty Start Date End Date No, Physician PCP - General 05/05/20 08/16/20 Inocencia Sheets, MIXING MACHINE OPERATOR [address] [address] PCP - General Internal Medicine 08/17/20 documented as of this encounter
--- OUTSIDE RECORDS SUMMARY | 2024-12-28 01:03 | XMS_ITS | Data Portability ---
Author Organization [facility] Address [address] [place] [address] Care Team Providers Care First Crusher Name Role Phone CRISTIAN BRENNAN Primary Care Provider [phone] Assessment Encounter Date Assessment Date Assessment LastModified [...] paper copy of today's plan if desired. [email or web address] Not available 11/27/2023 11:34:10 Plan of Treatment Reminders Order Date Submit Date Provider Last Modified By Organization Details Last Modified Time Details Appointments Robotic TLH 2024 12:00P Candy SINCLAIR MD Not available Not available Not available SURG POST OP 2024 08:45A Candy SINCLAIR MD Not available Not available Not available Lab CBC 2024 025 [facility] (Lab), [address] [facility], [place], [address], 12/16/2024 04:07:56 Referral [email or web address] logist referral 2023 024 MARCO ANTONIO Bill MD, [address] [facility], [facility] [address], [place], [address], 10/04/2024 05:01:13 Procedures None recorded. Surgeries robotic assisted hysterect jessica with salpingec jason (SURG) 2024 025 [email or web address] [facility], [address] [facility] [address], [place], [address], 12/10/2024 13:43:36 Imaging US, pelvis [address], [facility] [address], [place], [address], 02/04/2024 22:31:29 US, transvagi nal [email or web address], [address], [address], [place], [address], 02/04/2024 22:31:29 Medication Orders Chelsey 0.35 mg tablet 2023 024 [email or web address] [facility], [address] [place] [address] [address], [address], 03/30/2024 09:36:26 Patient TargetsNo targets recorded. Patient InstructionsNo instructions recorded. Reason for Referral Urogynecologist Referral for Female stress incontinence stress incontinence, planning hysterectomy in the fall Referring Physician: Farhad Sagastume, MOLD RUNNER, Encounter Date: 03/30/2024 Results Created Date Observation [...] as clini josé warra nted. Not Available [facility] (Lab) [address] [facility] [address], [place], [address], 12/02/2023 15:16:32 02/04/20 24 02/04/2024 US, abelvi s No observ ation record ed. [email or web address] [facility] [address], [place], [address], 02/04/2024 13:09:05 02/04/20 24 02/04/2024 US, moises becerril al No observ ation record ed. [email or web address] [facility] [address], [place], [address], 02/04/2024 13:08:56 02/04/20 24 02/04/2024 US, pelvi s No observ ation record ed. [email or web address] [address] [facility], [place], [address], 02/06/2024 10:56:17 Result Notes None recorded. Procedures Surgical History Date Name Laterality Status Provider Name and Address Organization Details Recorded Time 4 Date of Last Pap Smear completed Becca Gardner [facility] 11/27/2023 11:05:16 3 IUD Removal completed Kendal Cabrera CNM [address], [place], [address], [facility] 12/14/2022 11:07:34 Imaging Results Imaging Date Name Status LastModified by Organization Details LastModified Time 02/04/2024 US, pelvis completed [email or web address] [facility] [address], [place], [address], 02/04/2024 13:09:05 02/04/2024 [email or web address] [address], [place], [address], 02/04/2024 13:08:56 02/04/2024 US, pelvis completed [email or web address] [address], [place], [address], 02/06/2024 10:56:17 Procedure Notes None recorded. Medical Equipment None Reported. Allergies Allergen ID Allergen Name Allergen Category Reaction Reaction Severity Criticality Documentation Date Start Date Code Code System Note Provider Name and Address Organization Details Recorded Time amoxicill in medicatio n rash severe Not available 09/07/2022 723 RxNorm Becca medel, [facility] 2 10:02:21 16455 penicilli n V potassium medicatio n rash severe Not available 09/07/202267297 5 RxNorm Becca medel, [facility] 2 10:02:21 56030 Substance with sulfonami de structure and antibacte rial mechanism of action (substanc e) medicatio n rash severe Not available 09/07/2022 [address] [facility] 10:02:21 Medications Name Sig Start Date [...] Updated DateTime 11/27/2023 162.56 cm 25.4 kg/m2 95535.67 g 133 mm[Hg] 84 mm[Hg] Becca Gardner [facility] 4 11:04:50 Date Recorded Body height Body mass index (BMI) Body weight Systolic blood pressure Diastolic blood pressure Provider Name and Address Organization Details Last Updated DateTime 01/10/2024 162.56 cm 25 kg/m2 03712.05 g 122 mm[Hg] 77 mm[Hg] Teresa Bryant [facility] 4 12:35:05 Date Recorded Body height Body mass index (BMI) Body weight Systolic blood pressure Diastolic blood pressure Provider Name and Address Organization Details Last Updated DateTime 03/30/2024 162.56 cm 25.5 kg/m2 60143.11 g 111 mm[Hg] 76 mm[Hg] Guerline Lockwood [facility] 4 09:36:12 Date Recorded Body height Body mass index (BMI) Body weight Systolic blood pressure Diastolic blood pressure Provider Name and Address Organization Details Last Updated DateTime 12/09/2024 162.56 cm 26.2 kg/m2 51814.2 g 125 mm[Hg] 80 mm[Hg] Abimbola Andrea [facility] 17:38:47 Social History Question Answer Notes LastModified by Organizat ion Details LastModified Time Tobacco Smoking Status Former Smoker Becca medel, [facility] 09/07/2022 10:06:05 Do You Have An Advance Directive? No [email or web address] Information not available 09/07/2022 What Is Your Level Of Alcohol Consumption? Occasional [email or web address] Information not available 09/07/2022 How Many Years Have You Consumed Alcohol? 11 [email or web address] Information not available 01/10/2024 Are You Blind Or Do You Have Difficulty Seeing? No Information not available 09/07/2022 What Is Your Level Of Caffeine Consumption? Moderate [email or web address] Information not available 09/07/2022 How Much Tobacco Do You Chew? None Information not available 12/09/2024 In The 14 Days Before Symptom Onset, Have You Had Close Contact With A Laboratory-confir med COVID-19 While That Case Was Ill? No [email or web address] Information not available 09/07/2022 In The 14 Days Before Symptom Onset, Have You Had Close Contact With A Person Who Is Under Investigation For COVID-19 While That Person Was Ill? No [email or web address] Information not available 09/07/2022 Have You Been To An Area Known To Be High Risk For COVID-19? No [email or web address] Information not available 09/07/2022 Are You Deaf Or Do You Have Serious Difficulty Hearing? No [email or web address] Information not available 09/07/2022 What Type Of Diet Are You Following? REGULAR [email or web address] Information not available 09/07/2022 What Is The Highest Grade Or Level Of School You Have Completed Or The Highest Degree You Have Received? 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 Yes [email or web address] Information not available 09/07/2022 Have You Ever Been Counseled For Unhealthy Alcohol Use? No [email or web address] Information not available 09/07/2022 Do You Use Protection During Sex? No [email or web address] Information not available 09/07/2022 Do You Use Your Seat Belt Or Car Seat Routinely? Yes Information not available 09/07/2022 Do You Have Smoke And Carbon Monoxide Detectors In Your Home? Yes [email or web address] Information not available 09/07/2022 How Much Tobacco Do You Smoke? No [email or web address] Information not available 12/09/2024 Do You Feel Stressed (tense, Restless, Nervous, Or Anxious, Or Unable To Sleep At Night)? PR14354-4 [email or web address] Information not available 09/07/2022 Do You Use Any Illicit Or Recreational Drugs? No [email or web address] Information not available 09/07/2022 Do You Use Sunscreen Routinely? Yes [email or web address] Information not available 09/07/2022 Has Tobacco Cessation Counseling Been Provided? No [email or web address] Information not available 09/07/2022 Have You Used IV Drugs? No Information not available 09/07/2022 Do You Or Have You Ever Used Any Other Forms Of Tobacco Or Nicotine? No [email or web address] Information not available 09/07/2022 Sex: Unknown Functional Status Question Answer Note LastModified by Organizat ion Details LastModified Time Do you have difficulty walking or climbing stairs? No [email or web address] Information not available 09/07/2022 Are you able to walk? YESWOREST Information not available 09/07/2022 Are you able to care for yourself? Yes [email or web address] Information not available 09/07/2022 Do you have difficulty dressing or bathing? No Information not available 09/07/2022 What is your exercise level? Heavy [email or web address] Information not available 09/07/2022 Mental Status None recorded. Family History Relationship Description Onset Age of this Age Resolved Age Notes LastModified by Organization Details LastModified Time Father Heart disease [email or web address] Not available 09/07 10:02:21 Father Myocardial infarction [email or web address] Not available 11/2021 10:05:12 Father Open heart surgery [email or web address] Not available 02/2025 16:53:01 Maternal Grandfather Hypertensive disorder [email or web address] Not available 09/07 10:02:21 Mother Malignant tumor of ovary Not available 04/16 11:07:37 Mother Autoimmune disease [email or web address] Not available 2024 17:39:25 Medical History Condition Response Other N Blood Transfusion N Dermatologic Disorders N Gestational Diabetes Y Anxiety Disorder N Autoimmune disease N Arthritis N Polyps N Infertility N Acid Reflux (GERD) N Cancer N Varicosities N Stroke N Neurologic/Epilepsy N Fibromyalgia N Headaches Y Kidney Disease N Heart Problems N Kidney or Bladder Problems N Eating Disorder N Art (IVF or FET) N Hepatitis/Liver Disease N No Past Medical History N Urinary Tract Infection N Asthma N Trauma/Violence N Thrombophilias N Allergies (Food, seasonal, environmental ) Y Breast Cancer N Drug/Latex Allergies/Reactions Y Lung Disease N Defects or Inherited Disease N Breast Problem N Hematologic disorders N Anesthesia Complications N History of STI N Deep Vein Thrombosis N Polycystic ovary syndrome N History of abnormal pap N Endometriosis N High Cholesterol N Thyroid Problems N GI Problems N Anemia N Psychiatric Illness N Ovarian Cancer N Diabetes Y Pulmonary (TB, Asthma) N Eczema N Abuse/Domestic Violence N Depression/ depression N Heart Disease N Pre-Eclampsia Y Hypertension N Osteoporosis N Gynecological History Statement/Question Response Abnormal Pap [...] SNOMED-CT Code Diagnosis ICD10 Code Diagnosis Note [id number] Kendal Cabrera CNM [facility] [address],[place] [address] 09/07/2022 09:33:56 09/07/2022 11:02:04 Irregular periods 33168792 N92.6 Acne 20640654 L70.9 [id number] Tiarra Blanco [facility] [address],[place] [address] 10/11/2022 09:23:10 10/11/2022 10:47:09 Irregular periods 48218778 N92.6 [id number] [facility] [address],[place] [address] 12/14/2022 10:20:51 12/14/2022 11:18:48 Acne 98275084 L70.9 Vaginitis 33869334 N76.0 extended panel sent IUD check 700633540 Z30. 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, reviewed se risks and benefits will email in 3 months for f/u [id number] [facility] [address],[place] [address] 11/27/2023 10:41:27 11/27/2023 11:49:21 Gynecologic examination 05664941 Z01.419 Irregular periods 782203 07 N92.6 try couple monthsdisc ussed less coverage for bcm, use back updiscusse d vasectomy/ ablationvs hysterecto my se risks and benefits, discussed possible embwill f/u if pills do not work [id number] FARHAD SAGASTUME MD [facility] [address],[place] [address] 01/10/2024 11:58:40 01/15/2024 03:47:22 Abnormal uterine bleeding 4349102618 9100 N93.9 - patient reports heavy periods [...] will discuss further treatment options following [place] [id number] Frances Gagnon [facility] [address],[place] [address] 02/04/2024 10:12:32 02/04/2024 10:56:06 Menorrhagia 348868441 N92.0 N94.6 [id number] FARHAD SAGASTUME MD [facility] [address] [address] 03/30/2024 09:26:20 03/31/2024 11:00:28 Menorrhagia 162257381 N92.0 Abnormal u terine bleeding 0198268218 9100 N93.9 - patient reports heavy periods [...] with hysterecto my Female str ess incontinence 68452045 N39.3 - patient reports worsening stress incontinen ce since vaginal deliveries - will send referral to urology for possible combo case [id number] [facility] [address] [address] 12/09/2024 16:52:07 12/10/2024 05:43:24 Anemia 304609591 D64.9 Menorrhagia 130202879 N9 2.0 N94.6 this patient is a [...] Manrique Member ID Guarantor Name 11/27/2023 1 [facility] [id number] Liliane Kurt [place] [id number] 1 Liliane [place] 01/10/2024 1 [facility] [id number] Liliane E Ludgate [id number] 1 Liliane [place] 02/04/2024 1 [facility] [id number] Liliane E Lud[place] [id number] 1 Liliane [place] 03/30/2024 1 [facility] [id number] Liliane E [place] [id number] 1 Liliane [place] 12/09/2024 1 [facility] [id number] Liliane E Lud[place] [id number] 1 Liliane Lud[place] Notes Date Note Type [...] bleeding Kendal Cabrera CNM [address], [place], [address], [facility] 11/27/2023 11:39:43 01/10/2024 text/html Presents to [...] cancer. FARHAD SAGASTUME MD [address], [place], [address], [facility] 01/15/2024 00:03:45 03/30/2024 text/html [...] improvement. FARHAD SAGASTUME MD [address], [place], [address], [facility] 03/30/2024 23:10:50 12/09/2024 text/html [...] infection. Redd Sinclair MD [address], [place], [address], [facility] 12/09/2024 22:07:12 OBGyn Episode Ob Episode Information Episode Created Date Number of Fetuses Patient Bloodtype Patient rh Status Prepregnancy Weight lbs Domestic Partner Domestic Partner Phone Father Name Compensation Expert Status 09/06/20 22 1 CLOSED Fetus Data First Name Last Name Admitted to NICU Weight (g) Sex Living Outcome Pediatric Complications Fetus ID Race Codes Race Delivery Type M Full Term [id number] Vaginal Delivery Logan Calculation Initial Logan Date [...] Domestic Partner Domestic Partner Phone Father Name Compensation Expert Status 09/06/20 22 1 CLOSED Fetus Data First Name Last Name Admitted to NICU Weight (g) Sex Living Outcome Pediatric Complications Fetus ID Race Codes Race Delivery Type F Full Term [id number] Vaginal Delivery Logan Calculation Initial Logan Date [...]
--- OUTSIDE RECORDS SUMMARY | 2024-12-28 01:03 | XMS_ITS | Encounter Summary ---
Author Organization [facility] Care Team Providers Care Anode Machine Operator Name Role Phone No, Physician Primary Care Provider [phone] Inocencia Sheets OPERATIONS VICE PRESIDENT Primary Care Provider Encounter Details Date Type Department Care Team (Latest Contact Info) Description 02/04/2017 Orders Only [facility] CLINCONV ProviderBrandon MD [address] [place] [address] Social History Tobacco Use Types Packs/Day Years Used Date Smoking Tobacco: Never Assessed Comments Unknown Sex and Gender Information Value Date Recorded Sex Assigned at Not on file Legal Sex Female 7:44 PM ORTHOPEDIC SPECIALIST Gender Identity Female 09/06/2020 10:20 AM ORTHOPEDIC SPECIALIST Sexual Orientation Straight 09/06/2020 10 :20 AM ORTHOPEDIC SPECIALIST documented as of this encounter Plan of [...] on filedocumented in this encounter Care Teams Anode Machine Operator Relationship Specialty Start Date End Date No, Physician PCP - General 05/05/20 08/16/20 Inocencia Sheets NP [address] [address] PCP - General Internal Medicine 08/17/20 documented as of this encounter
--- OUTSIDE RECORDS SUMMARY | 2024-12-28 01:03 | XMS_ITS | Encounter Summary ---
Author Organization [facility] Care Team Providers Care Engineering Librarian Name Role Phone No, Physician Primary Care Provider [phone] Inocencia Sheets ENGLISH LANGUAGE ARTS TEACHER Primary Care Provider Encounter Details Date Type Department Care Team (Latest Contact Info) Description 09/25/2017 Orders Only [facility] CLINCONV ProviderBrandon MD [address] [place] [address] Social History Tobacco Use Types Packs/Day Years Used Date Smoking Tobacco: Never Assessed Comments Unknown Sex and Gender Information Value Date Recorded Sex Assigned at Not on file Legal Sex Female 7:44 PM CHIEF TRANSFER AND PUMPHOUSE OPERATOR Gender Identity Female 09/06/2020 10:20 AM CHIEF TRANSFER AND PUMPHOUSE OPERATOR Sexual Orientation Straight 09/06/2020 10 :20 AM CHIEF TRANSFER AND PUMPHOUSE OPERATOR documented as of this encounter Plan of Treatment Not on file documented as of this encounter Procedures Procedure Name Priority Date/Time Associated Diagnosis Comments SCAN - PATHOLOGY 10/09/2017 12:0 0 AM CHIEF TRANSFER AND PUMPHOUSE OPERATOR documented in this encounter Results * SCAN - PATHOLOGY (10/09/2017 12:00 AM CHIEF TRANSFER AND PUMPHOUSE OPERATOR) Narrative 10/09/2017 12:00 AM CHIEF TRANSFER AND PUMPHOUSE OPERATOR Ordered by an unspecified provider. Historical Provider Final Res ult documented in this encounter Visit Diagnoses Not on filedocumented in this encounter Care Teams Engineering Librarian Relationship Specialty Start Date End Date No, Physician PCP - General 05/05/20 08/16/20 Inocencia Sheets, ENGLISH LANGUAGE ARTS TEACHER [address] [address] PCP - General Internal Medicine 08/17/20 documented as of this encounter
--- OUTSIDE RECORDS SUMMARY | 2024-12-28 01:03 | XMS_ITS | Clinical Summary ---
Author Organization [facility] Address [address] [place] [address] Care Team Providers Care Senior Firmware Engineer Name Role Phone SheetsYehudaInocenciabella Yepez NP Primary [...] 08/12/2023 Assessment & Plan (08/12/2023 11:55 AM FOUNTAIN DISPENSER): Follow-up 1 year for annual physical. Continue [...] on file Legal Sex Female 7:44 PM FOUNTAIN DISPENSER Gender Identity Female 09/06/2020 10:20 AM FOUNTAIN DISPENSER Sexual Orientation Straight 09/06/2020 10 :20 AM FOUNTAIN DISPENSER Obstetrics History Para Term AB IAB SAB Ectopic Multiple Livin g Live Births 2 2 2 2 2 Date Outcome GA Total Labor Labor/2nd/3rd Weight Sex Type Anes PTL Christy A1 A5 Name Clin Term Term Last Filed Vital Signs Vital Sign Reading Time Taken Comments Blood Pressure 104/66 08/12/2023 10:52 AM FOUNTAIN DISPENSER Pulse 89 08/12/2023 10:52 AM FOUNTAIN DISPENSER Temperature 36.7 C (98 F) 08/12/2023 10:52 AM FOUNTAIN DISPENSER Respiratory Rate 16 08/12/2023 10:52 AM FOUNTAIN DISPENSER Oxygen Saturation 100% 08/12/2023 10:52 AM FOUNTAIN DISPENSER Inhaled Oxygen Concentration - - Weight 67.6 kg (149 lb) 08/12/2023 10:52 AM FOUNTAIN DISPENSER Height 160 cm (5' 2.99 ) 08/12/2023 10:52 AM FOUNTAIN DISPENSER Body Mass Index 26.4 08/12/2023 10:52 AM FOUNTAIN DISPENSER Plan of Treatment Health Maintenance Due Date [...] PAP WITH HPV Routine 10/10/2021 10:59 AM FOUNTAIN DISPENSER HEPATITIS C ANTIBODY Routine 12/21/2016 2:47 PM CDT from Last 3 Months or Most Recently Relevant to Health Maintenance Results * ThinPrep Pap with HPV (10/10/2021 10:59 AM FOUNTAIN DISPENSER) Pap test 10/10/2021 10:5 9 AM FOUNTAIN DISPENSER 10/11/2021 10:59 AM FOUNTAIN DISPENSER Narrative 10/16/2021 6:02 PM FOUNTAIN DISPENSER [facility] Department of Pathology [address] [place] [address] Final Report with Addendum Note to [...] the details. Patient Name: LILIANE NAVARRO Address: [address] [place] [address] Gender: F : 1990 (Age: 31) Service: Laboratory Location: N : [id number] [facility] #: [id number] Patient Type: [facility] SPECIMEN Taken: 10/10/2021 Received: 10/11/2021 Accessioned:: 10/12/2021 Reported: 10/16/2021 Physician(s): Rosi Baird M.D. [facility] Diagnosis: Source of Specimen: Imaged Thinprep Pap Test plus HPV - School Director Cytologic Material Specimen Adequacy: - Satisfactory for [...] Imaged Thinprep Pap Test plus HPV - School Director Cytologic Material Clinical History: Last Menstrual Period: [...] determined by the Surgical Pathology Department at [facility] as part of an ongoing senior quality control inspector program and in compliance with federally mandated [...] characteristics determined by the Surgical Pathology Department [facility]. It has not been cleared or approved by the U. S. Food and Drug Administration. Rosi Baird MD LAB CYTOLOGY ORDERABLES Final Re sult * Hepatitis C antibody (12/21/2016 2:47 PM CDT) Hep C Ab NONREACT NONREACTIVE 12/21/2016 6:[address] [facility] HISTORICAL RESULTS Comment: Siemens SocialBuyaurXP using MAURICE (chemiluminescent immunoassay) technology. NONREACTIVE: Antibodies [...] MICROBIOLOGY - GENERAL O RDERABLES Final Result [facility] HISTORICAL RESULTS from Last 3 Months or Most Recently Relevant to Health Maintenance Insurance Care Teams Senior Firmware Engineer Relationship Specialty Start Date End Date Inocencia Sheets NP [address] [facility] [address] [place] [address] PCP - General Internal Medicine 08/17/20
--- OUTSIDE RECORDS SUMMARY | 2024-12-28 01:04 | XMS_ITS | Encounter Summary ---
Author Organization [facility] Care Team Providers Care Brass Reclaimer Name Role Phone No, Physician Primary Care Provider [phone] Inocencia Sheets CYLINDER TESTER Primary Care Provider Encounter Details Date Type Department Care Team (Latest Contact Info) Description 06/11/2017 Orders Only [facility] CLINCONV ProviderBrandon MD [address] [place] [address] Social History Tobacco Use Types Packs/Day Years Used Date Smoking Tobacco: Never Assessed Comments Unknown Sex and Gender Information Value Date Recorded Sex Assigned at Not on file Legal Sex Female 7:44 PM TUTORIAL LABORATORY SUPERVISOR Gender Identity Female 09/06/2020 10:20 AM TUTORIAL LABORATORY SUPERVISOR Sexual Orientation Straight 09/06/2020 10 :20 AM TUTORIAL LABORATORY SUPERVISOR documented as of this encounter Plan of [...] on filedocumented in this encounter Care Teams Brass Reclaimer Relationship Specialty Start Date End Date No, Physician PCP - General 05/05/20 08/16/20 Inocencia Sheets NP [address] [facility] [address] [place] [address] PCP - General Internal Medicine 08/17/20 documented as of this encounter
--- OUTSIDE RECORDS SUMMARY | 2024-12-28 01:04 | XMS_ITS | Encounter Summary ---
Author Organization [facility] Care Team Providers Care Sales Force Administrator Name Role Phone No, Physician Primary Care Provider [phone] Inocencia Sheets SECTION HAND HELPER Primary Care Provider Encounter Details Date Type Department Care Team (Latest Contact Info) Description 07/09/2017 Orders Only [facility]IN[facility] ProviderBrandon MD [address] [place] [id number] Social History Tobacco Use Types Packs/Day Years Used Date Smoking Tobacco: Never Assessed Comments Unknown Sex and Gender Information Value Date Recorded Sex Assigned at Not on file Legal Sex Female 7:44 PM SLITTER AND REWINDER MACHINE OPERATOR Gender Identity Female 09/06/2020 10:20 AM SLITTER AND REWINDER MACHINE OPERATOR Sexual Orientation Straight 09/06/2020 10 :20 AM SLITTER AND REWINDER MACHINE OPERATOR documented as of this encounter Plan [...] on filedocumented in this encounter Care Teams Sales Force Administrator Relationship Specialty Start Date End Date No, Physician PCP - General 05/05/20 08/16/20 Inocencia Sheets NP [address] [id number] PCP - General Internal Medicine 08/17/20 documented as of this encounter
--- OUTSIDE RECORDS SUMMARY | 2024-12-28 01:04 | XMS_ITS | Encounter Summary ---
Author Organization [facility] Care Team Providers Care School Library Media Specialist Name Role Phone No, Physician Primary Care Provider [phone] Inocencia Sheets OPERATIONS EXAMINER Primary Care Provider Encounter Details Date Type Department Care Team (Latest Contact Info) Description 04/24/2017 Orders Only [facility]INCONV ProviderBrandon MD [address] [place] [id number] Social History Tobacco Use Types Packs/Day Years Used Date Smoking Tobacco: Never Assessed Comments Unknown Sex and Gender Information Value Date Recorded Sex Assigned at Not on file Legal Sex Female 7:44 PM AREA CLEANER Gender Identity Female 09/06/2020 10:20 AM AREA CLEANER Sexual Orientation Straight 09/06/2020 10 :20 AM AREA CLEANER documented as of this encounter Plan of [...] on filedocumented in this encounter Care Teams School Library Media Specialist Relationship Specialty Start Date End Date No, Physician PCP - General 05/05/20 08/16/20 Inocencia Sheets, ABA [address] [facility] [address] [place] [address] PCP - General Internal Medicine 08/17/20 documented as of this encounter
--- NOTE | 2024-12-28 07:16 | WPDHPUPDATE1 ---
History and Physical Update Update Date/Time: 12/28/24 07:16 History and Physical has been reviewed, including an updated exam of the patient. There are NO changes in the patient's condition. Risks, benefits, and alternatives have been discussed and questions answered. Patient agrees to proceed with procedure.
--- NOTE | 2024-12-28 09:36 | P.PNAN_ITS ---
Anes - Initial Pre Proc Eval Procedure: Operation Date: 12/28/24 12:00 Proposed Procedures p Robotic Assisted Hysterectomy with Salpingectomy - Redd Sinclair MD s Urethral Sling - Jean Bill MD Date/Time: 12/28/24 09:36 Surgeon: Redd Sinclair MD Pre Op Diagnosis: stress incont, Menorrhagia Patient Data Age: 34 Gender: F Height: 1.6 m Weight: 68.2 kg Allergies Allergy/AdvReac Type Severity Reaction Status Date / Time amoxicillin Allergy Severe Hives Verified 12/28/24 11:05 Penicillins Allergy Severe Hives Verified 12/28/24 11:05 Sulfa (Sulfonamide Allergy Severe Hives Verified 12/28/24 11:05 Antibiotics) Home Medications ?Medication ?Instructions ?Recorded ?Confirmed ?Type ibuprofen 200 mg tablet (Advil) 800 mg PO TID PRN pain 12/17/24 12/17/24 History lactobacillus combo no.11 15 1 cap PO DAILY 12/17/24 12/28/24 History billion cell sprinkle capsule (Probiotic) vitamin B complex 1 tablet PO DAILY 12/17/24 12/28/24 History vitamin D3 1,250 mcg (50,000 cap PO DAILY 12/17/24 History unit)-vitamin K2 200 mcg capsule (Decara K) Patient hx anesthesia problems: none Family hx anesthesia problems: none Results Review: All pre-operative results and documents have been reviewed as part of the pre- operative evaluation. [facility] Social History Social History Years smoked: 2 Smoking status: Former smoker Tobacco type: cigarettes Smoking end date: 12/18/19 Alcohol intake: current Living arrangements: with family Spiritual care concerns: No Anes - Eval Final PreProcedure Day of Procedure 12/28/24 09:36 Patient weight: normal Heart: regular rate and rhythm Lungs: clear to auscultation Airway: Mallampati scale class II Neurological: alert and oriented Last oral intake: >/= 8 hours ASA classification: II Emergent: no Anesthetic plan: proceed Anesthesia type and monitoring: general ETT and standard monitoring Results Review: All pre-operative results and documents have been reviewed as part of the pre- operative evaluation. Informed Consent: The patient's anesthetic plan and its attendant risks and benefits were discussed with the patient/family/POA. Questions were solicited and answers provided to the satisfaction of the patient/family/POA.
[2024-12-28] MEDS: ACETAMINOPHEN 500 MG TABLET 1000 MG PO ×3 (10:35→23:11)
[2024-12-28] MEDS: KETOROLAC 15 MG/ML VIAL (*BKC) IV PUSH (10:40)
[2024-12-28] MEDS: LACTATED RINGERS 1,000 ML 30 ML IV CONT ×3 (10:40→15:01)
[2024-12-28 11:09] LABS: BEDSIDEPREGUCG Negative (Negative)
--- NOTE | 2024-12-28 11:54 | WPDHPUPDATE1 ---
History and Physical Update Update Date/Time: 12/28/24 11:54 History and Physical has been reviewed, including an updated exam of the patient. There are NO changes in the patient's condition. Risks, benefits, and alternatives have been discussed and questions answered. Patient agrees to proceed with procedure.
[2024-12-28] MEDS: ceFAZolin 2 GM/D5W 50 ML 2 GM/50 ML BAG IVPB (12:29)
[2024-12-28] MEDS: GENTAMICIN SULFATE INJ 340 MG in DEXTROSE 5% 100 ML 100 MG IVPB (12:29)
[2024-12-28] MEDS: BUPIVACAINE/EPINEPHRINE 0.5% 50 ML VIAL 30 ML INFILTRATE (13:18)
--- NOTE | 2024-12-28 14:29 | P.OP_ITS ---
Procedure Note - Detailed Date of Procedure 12/28/24 Pre-op Diagnosis stress incont, Menorrhagia Post-op Diagnosis Same Procedure Performed Robot assisted Total hysterectomy with bilateral salpingectomy. Surgeon Redd Sinclair MD Anesthesia General Indications heavy vaginal bleeding, pelvic pain Findings normal-appearing uterus, ovaries, and left tube, right tube was partially resected. Some scarring over the posterior cul-de-sac peritoneum. Description of Procedure This patient was taken to the operating room. She was prepped and draped in the dorsal lithotomy position after induction of general anesthesia. The uterine manipulator and Vernon cup were placed. This was done with a speculum and tenaculum. The speculum was placed. The cervix was grasped with a tenaculum. The stay sutures were placed at 3 and 9:00 a.m.. The stay sutures of 0 Vicryl were tied to the appropriately Size scope after it was slipped around the cervix.. The tip of the PAPITO manipulator was placed in the intrauter ine cavity. The cup was slid into place around the cervix and into the fornices. It was locked into place. The sutures were then wrapped around the handle and tied under tension. A 8 mm skin incision was made in the left upper quadrant the abdomen. a 5 mm Visiport trocar was inserted into abdominal cavity and pneumoperitoneum was achieved. A 8 mm supraumbilical incision was made and a 8 mm trocar was inserted into the intrauterine cavity under direct visualization of the scope. an 8 mm incision was made in the right upper quadrant of the abdomen and an 8 mm robotic trocar was placed the inter uterine cavity under direct visualization the scope. An 11 mm trocar was inserted in the right upper quadrant of the abdomen rectal is a cystoscope after an incision was made there as well. The robot was docked. Electronic Orientation of the robot was performed. Bilateral ureteral lysis was performed. This was done from the pelvic brim down to the uterine artery. This was done with careful dissection using sharp and blunt dissection. The fallopian tubes were removed bilaterally. The mesosalpinx around the fallopian tubes were cauterized transected with LigaSure cautery. This was done in a bilateral fashion from the ovary to the uterine cornua. The fallopian tube was transected at the uterine cornu and amputated. The tube was taken out the left lower quadrant trocar site. In a stepwise fashion along the lateral aspects of the uterus the round ligament and broad ligaments were cauterized transected down to the level of the uterine arteries. A bladder flap was created in the bladder was moved distally to the end of the cervix and over the Vernon cup. The bilateral uterine arteries were cauterized and transected. Colpotomy was then performed. In a circumferential fashion the vagina was transected using unipolar cautery. The incision was made down on the Vernon cup. The uterus and cervix were taken out through the vagina. A pneumo occluder was placed in the vagina. The vaginal cuff was closed with a 0 V lock suture in a running fashion. The pelvis was irrigated with copious amounts antibiotic irrigation. The ureters were again examined and found to be intact and flowing freely under the uterine arteries into the bladder. The bladder was intact. It was examined directly. Cystoscopy was performed after administration of methylene blue. The cystoscope was inserted. Bladder was distended with fluid. The ureteric meatus was observed bilaterally. Blue fluid was seen to egress bilaterally. The bladder was drained and the cystoscope was withdrawn. The vagina was irrigated with Betadine solution after removal of the Pneumo occluder. the trocars were removed after the robot was undocked. The skin was closed with subacute or Dermabond. The patient was taken to recovery room. She was stable condition. Sponge lap and needle counts were correct x2. Estimated Blood Loss 125 Urine Output 800 Drains Yes Packing No Pathology Yes Complications No immediate complications Condition Stable Disposition Floor
--- NOTE | 2024-12-28 14:55 | W.PM.PROC2 ---
Procedure Note - Detailed Date of Procedure 12/28/24 Pre-op Diagnosis Stress incontinence Post-op Diagnosis Same Procedure Performed mid urethral sling cystoscopy Surgeon Jean Bill MD Anesthesia General Indications This is a female with confirm stress urinary incontinence. She desires surgical correction. She understands the risks of bleeding, infection, injury to the urinary tract, vaginal mesh extrusion, urinary tract mesh erosion, obstructive voiding requiring a secondary procedure, hip and leg pain, dyspareunia, inability to improve overactive bladder symptoms. She agrees to proceed. She is doing this in conjunction with hysterectomy for dysfunctional uterine bleeding Description of Procedure She was correctly identified. Informed consent obtained. She was already in the operating room. Her hysterectomy had been concluded.. She was under appropriate anesthesia. She was given appropriate perioperative antibiotics. A time-out performed. I marked out the site of the inner thigh incisions. I anesthetized the skin and made those incisions. I anesthetized the anterior vaginal wall over the mid urethra. I made a 1 cm incision. I dissected out laterally taking great care not to injure the refilled vaginal wall. I passed the helical trocars. First on the left. Then on the right. I did this from the thigh incision towards the vaginal incision. The sling was connected to the trocars and brought out through the thigh incision. I tensioned the sling appropriately. I cut and the plastic sheaths. I then closed the incision with 2 0 Vicryl. On cystoscopy there is no tumors or surgical artifact. There was no surgical artifact in the urethra. Bilateral ureteral patency had already been documented by her strategic planning manager at the conclusion of his portion of the procedure. I was informed he had documented blue-stained urine emanating from each ureteral orifice at the conclusion of the hysterectomy I cut the excess sling material. Closed incisions with glue. She was awakened and transferred to the PACU in stable condition. Implants Urethral sling Estimated Blood Loss 40 Urine Output 800 Drains No Packing No Pathology None sent Complications No immediate complications Condition Stable Disposition PACU
[2024-12-28] MEDS: fentaNYL CITRATE INJ (*CRX) 100 MCG/2 ML VIAL 25 MCG IV PUSH ×4 (15:27→16:19)
[2024-12-28] MEDS: KETOROLAC 30 MG/ML VIAL (*BKC) IV PUSH ×2 (17:01→23:12)
[2024-12-28] MEDS: oxyCODONE HCL (*CRX) 5 MG TAB IR PO (20:35)
[2024-12-29 05:15] VITALS: BP 105/71; PULSE 81; RESP 16; TEMP 37; O2SAT 96
[2024-12-29] MEDS: KETOROLAC 30 MG/ML VIAL (*BKC) IV PUSH (05:21)
[2024-12-29] MEDS: ACETAMINOPHEN 500 MG TABLET 1000 MG PO (05:22)
[2024-12-29 07:30] VITALS: BP 117/78; PULSE 81; RESP 16; TEMP 37.3; O2SAT 98
--- NOTE | 2024-12-29 08:24 | P.PNOB_ITS ---
ENRICHMENT ASSISTANT - A/P Postoperative Procedures: Procedures Operation Date: 12/28/24 12:00 Actual Procedure Side Surgeon p Robotic Assisted Hysterectomy with Bilateral Salpingectomy, Cystoscopy Bilateral Redd Sinclair MD s Urethral Sling Not Applicable Jean Bill MD Postoperative day: 1 Postoperative status: doing well Postoperative plan: see orders Time Spent With Patient Time: Total time spent is greater than 50% in coordination of care (as documented) at patient's floor/unit and/or counseling patient: Time with patient: less than 15 minutes ENRICHMENT ASSISTANT- PN:Subj Post-Op Subjective Date/time seen: 12/29/24 08:24 Subjective: patient reports feeling better, patient has no complaints and pain is well controlled Exam Const: General: healthy appearing, comfortable and no acute distress Resp: Auscultation: clear to auscultation bilaterally, no rales, no rhonchi and no wheezes Cardio: Rate: regular rate Heart sounds: no click, no murmurs and no rubs GI: Inspection: non-distended Auscultation: normal bowel sounds Extrem: General: normal to inspection, no pedal edema and no calf tenderness ENRICHMENT ASSISTANT - PN: Obj Data Vital Signs Vital Signs: Vital Signs - 24 hr 12/28/24 10:02 12/28/24 15:01 12/28/24 15:15 Temperature 97.2 F L 97.2 F L Pulse Rate 94 103 H 96 Respiratory Rate 16 14 20 Blood Pressure 139/91 H 108/65 111/73 Pulse Oximetry 97 100 99 Oxygen Delivery Room Air Simple Face Mask Room Air Oxygen Flow Rate 8 12/28/24 15:30 12/28/24 15:45 12/28/24 16:00 Temperature Pulse Rate 60 72 99 Respiratory Rate 12 12 20 Blood Pressure 109/75 105/76 105/72 Pulse Oximetry 99 99 100 Oxygen Delivery Room Air Room Air Room Air Oxygen Flow Rate 12/28/24 16:15 12/28/24 16:45 12/28/24 20:35 Temperature 97.0 F L 98.4 F Pulse Rate 75 88 85 Respiratory Rate 14 18 16 Blood Pressure 109/81 103/75 Pulse Oximetry 100 98 98 Oxygen Delivery Room Air Room Air Oxygen Flow Rate 12/28/24 20:35 12/28/24 23:17 12/29/24 05:15 Temperature 98.1 F 98.5 F 98.6 F Pulse Rate 85 59 L 81 Respiratory Rate 16 16 16 Blood Pressure 95/65 L 97/69 L 105/71 Pulse Oximetry 98 100 96 Oxygen Delivery Oxygen Flow Rate 12/29/24 07:30 12/29/24 07:30 Temperature 99.1 F Pulse Rate 81 Respiratory Rate 16 Blood Pressure 117/78 Pulse Oximetry 98 Oxygen Delivery Room Air Oxygen Flow Rate Intake/Output Intake/Output: Intake & Output 12/26/24 12/27/24 12/28/24 12/29/24 23:59 23:59 23:59 23:59 Intake Total 2858.5 Output Total 2880 2300 Balance -21.5 -2300 Meds/Results Medications: Active Medications Generic Name Dose Route Start Last Admin Trade Name Freq PRN Reason Stop Dose Admin Acetaminophen 1,000 mg 12/28/24 18:00 12/29/24 05:22 Acetaminophen 500 Mg Tablet PO 1,000 mg Q6HR GODWIN Administration Docusate Sodium 100 mg 12/28/24 17:00 12/28/24 17:54 Docusate Sodium 100 Mg Capsule PO Not Given BID [facility] Dextrose/Sodium Chloride 1,000 mls @ 125 mls/hr 12/28/24 14:30 Dextrose 5% Sodium Chloride 0.45% IV CONT .Q8H [facility] Ibuprofen 600 mg 12/29/24 12:00 Ibuprofen 600 Mg Tablet PO Q6HR [facility] Lactobacillus Acidophilus 1 tablet 12/29/24 09:00 Acidophilus/Bulgaricus Chewable Tablet BY MOUTH DAILY [facility] Naloxone HCl 0.1 mg 12/28/24 14:29 Naloxone Hcl 0.4 Mg/Ml Vial IV PUSH Q2M PRN Respiratory rate less than 10 Ondansetron HCl 4 mg 12/28/24 14:29 Ondansetron Inj 4 Mg/2 Ml Vial IV PUSH Q6H PRN Nausea And Vomiting Oxycodone HCl 5 mg 12/28/24 14:29 12/28/24 20:35 Oxycodone Hcl (*Crx) 5 Mg Tab Ir PO 5 mg Q4H PRN Administration Pain Rated 4-6 Oxycodone HCl 10 mg 12/28/24 14:29 Oxycodone Hcl (*Crx) 5 Mg Tab Ir PO Q6H PRN Pain Rated 7-10 Simethicone 80 mg 12/28/24 17:00 12/28/24 17:54 Simethicone 80 Mg Tab.Chew PO Not Given TIDWM [facility] Vitamin B Complex 1 cap 12/29/24 09:00 Vitamin B Complex Capsule PO DAILY [facility] Labs Labs: Laboratory Results - last 24 hr 12/28/24 11:07 POC Urine HCG, Qual Negative
== END 2024-12-29 10:20 | disposition home or self-care (01) ==
LOC: ANHSURGERY 09:53 → ANHOB2 16:32
PROVIDERS: Urology; Visit Provider Obstetrics & Gynecology
PROC: (CPT 58571; principal; 2024-12-28 12:00)
PROC: (CPT 57288; 2024-12-28 12:00)
DX: N92.0 Excessive and frequent menstruation with regular cycle (principal); N39.3 Stress incontinence (female) (male); R10.2 Pelvic and perineal pain; N72 Inflammatory disease of cervix uteri; N87.9 Dysplasia of cervix uteri, unspecified; N88.8 Other specified noninflammatory disorders of cervix uteri; Z87.891 Personal history of nicotine dependence
CPT/HCPCS: 57288; 58571; S2900; 88307; A9270; C1771; J0690; J1100; J1171; J1580; J1885; J2003; J2250; J2310; J2405; J2704; J3010; J7030; J7120; Q9968